=== PATIENT | male | born 1945 | race Caucasian/White ===

== ENCOUNTER 2023-04-15 13:36 | Outpatient (CLI) | payer MEDICARE, BC, SELFPAY ==
--- NOTE | ~2023-04-15 | PE_ITS ---
CORRECTED REPORT exam description edit [facility] [place] 04/28/23 This report was recreated on 04/28/23. Original report was EXAMINATION: PET PSMA skull to mid thigh DATE: 04/15/2023 16:57 INDICATION: Prostate cancer. TECHNIQUE: 6.590 mCi of piflufolastat F-18 was administered intravenously. Low dose computed tomography (CT) images were acquired from the base of the brain to the proximal thighs for attenuation correction and anatomic localization. Automated exposure control was employed. Dose-length product (DLP) was 493 mGy- cm. Positron emission tomography (PET) images were acquired in the same distribution. COMPARISON: None FINDINGS: Head/neck: There are no pathologically enlarged lymph nodes. Chest: The lungs demonstrate mild atelectasis. No pleural effusion. The heart size is normal. No pericardial effusion. Abdomen/pelvis/proximal thighs: The liver, spleen, gallbladder, pancreas, and adrenal glands are normal. There are cysts in the kidneys measuring up to 3.6 cm on the left. There is a 3 mm stone in right kidney. There is diverticulosis of the colon without evidence of diverticulitis. There are no dilated loops of bowel. There is calcified atherosclerosis of the aorta and many of the other arteries. There are no pathologically enlarged lymph nodes. There is no free intraperitoneal fluid. The prostate is moderately enlarged. There is increased activity in the peripheral zone of the prostate bilaterally with maximum SUV of 74.1 on the right. There is severe fatty atrophy of the musculature in left pelvis and left thigh. There is a total right hip arthroplasty. There are changes of posterior fusion procedure involving the lumbar spine, sacrum, and iliac bones. IMPRESSION: 1. Moderately enlarged prostate with increased activity, greatest in the peripheral zone on the right, consistent with primary malignancy. No evidence of metastatic disease. Reviewed, dictated and finalized at location A. MTDD IMPRESSION: 1. Moderately enlarged prostate with increased activity, greatest in the periph eral zone on the right, consistent with primary malignancy. No evidence of meta static disease.
== END 2023-04-15 13:37 | disposition home or self-care (01) ==
LOC: ANHIMG 13:42
PROVIDERS: Visit Provider Urology
DX: C61 Malignant neoplasm of prostate (principal); N40.0 Benign prostatic hyperplasia without lower urinary tract symptoms
CPT/HCPCS: 78815; A9552; A9595

== ENCOUNTER 2023-07-01 15:42 | Emergency (ER) | payer MEDICARE, BC, SELFPAY ==
--- NOTE | ~2023-07-01 | XR_ITS ---
EXAMINATION: XR chest 2V 07/01/2023 16:11 INDICATION: Shortness of breath PROCEDURE: 2 view chest COMPARISON: No prior studies for comparison. FINDINGS: The lungs are clear. The cardiomediastinal silhouette is within normal limits. There are no pleural effusions. There is no pneumothorax suspected. IMPRESSION: 1: NO ACUTE CARDIOPULMONARY DISEASE. Reviewed, dictated and finalized at location A. SUPERINTENDENT
[2023-07-01 15:46] VITALS: BP 142/81; PULSE 83; RESP 18; TEMP 36.3; O2SAT 100
--- NOTE | 2023-07-01 15:49 | ECG_ITS ---
Measurements Intervals Bow Rate: 77 P: 71 HI: 131 QRS: 9 QRSD: 85 T: 33 QT: 348 QTc: 394 Interpretive Statements SINUS RHYTHM NO PREVIOUS ECG AVAILABLE FOR COMPARISON Electronically Signed On 07-01-2023 16:44:22 LOOP TACKER by Berny Almazan M.D.
[2023-07-01 16:03] LABS: Basophils Percent Auto 0.1 % (0.2-1.2); Hematocrit 45.3 % (42.0-52.0); Hemoglobin 14.5 g/dL (14.0-18.0); Immature Granulocyte Absolute 0.03 K/mm3 (0.00-0.031); Immature Granulocyte Percent A 0.4 % (0-0.5); Lymphocytes Absolute Auto 0.82 K/mm3 (0.9-3.2); Lymphocytes Percent Auto 11.5 % (18.3-44.2); Mean Corpuscular Hemoglobin 28.9 pg (26-34); Mean Corpuscular Volume 90.4 fl (80-100); Mean Platelet Volume 9.3 fl (7.4-10.4); Monocytes Absolute Auto 0.3 K/mm3 (0.1-0.6); Monocytes Percent Auto 3.9 % (2.6-8.5); Neutrophils Percent Auto 84.1 % (45.5-73.1); Platelet Count Result 308 k/mm3 (150-375); Red Blood Count 5.01 M/mm3 (4.6-6.20); Red Cell Distribution Width 14.1 % (11.5-14.5); White Blood Count 7.1 K/mm3 (4.5-10.0)
[2023-07-01 16:14] LABS: Alanine Aminotransferase 78 U/L (6-50); Alkaline Phosphatase 114 U/L (38-126); Anion Gap 7 mmol/L (8-16); Aspartate Amino Transferase 76 U/L (17-59); Bilirubin,Total 0.5 mg/dL (0.2-1.3); Blood Urea Nitrogen 18 mg/dL (9-20); Calcium 9.5 mg/dL (8.4-10.2); Carbon Dioxide 27 mmol/L (22-30); Chloride 101 mmol/L (98-107); Estimated CRCL calculation 83 ml/min; Estimated Glomerular Filt Rate > 60; Glucose 115 mg/dL (65-110); Potassium 3.9 mmol/L (3.4-5.0); Sodium 135 mmol/L (137-145)
--- NOTE | 2023-07-01 18:09 | PC.NURSE ---
6934-FAMILY MEMBER REPORTS PATIENT WITH FREQUENT BELCHING AND HEARTBURN. FAMILY MEMBER STATES IT HAS BEEN HAPPENING MORE THIS PAST WEEK.
--- NOTE | 2023-07-01 19:25 | PC.NURSE ---
Patient states we have been waiting long enough. We are gonna go .
== END 2023-07-01 19:25 | disposition left against medical advice (07) ==
PROVIDERS: Emergency Provider Emergency Medicine
DX: R06.02 Shortness of breath (principal)
CPT/HCPCS: 36415; 71046; 80053; 85025; 93005; 99199

== ENCOUNTER 2023-08-17 10:19 | Outpatient (CLI) | payer MEDICARE, BC, SELFPAY ==
--- NOTE | ~2023-08-17 | MR_ITS ---
EXAMINATION: MR pelvis wo/w con DATE: 08/17/2023 11:59 INDICATION: Prostate cancer. TECHNIQUE: Magnetic resonance imaging (MRI) of the pelvis was performed without and with 15 mL MultiH ance intravenous contrast. COMPARISON: PET/CT 04/15/2023 FINDINGS: The prostate is moderately enlarged. There are spacer gel between the rectum and prostate. There is d iverticulosis of the colon without evidence of diverticulitis. There is artifact from a right hip art hroplasty. There are no pathologically enlarged lymph nodes. There is no free intraperitoneal fluid. There are changes of posterior fusion procedure involving the lumbar spine, sacrum, and iliac bones. IMPRESSION: 1. Moderately enlarged prostate. No evidence of metastatic disease. Reviewed, dictated and finalized at location A. TIVE GURU
== END 2023-08-17 10:20 | disposition home or self-care (01) ==
LOC: ANHIMG 10:20
PROVIDERS: Visit Provider Radiology Radiation Oncology
DX: N40.0 Benign prostatic hyperplasia without lower urinary tract symptoms (principal); C61 Malignant neoplasm of prostate
CPT/HCPCS: 72197; A9577

== ENCOUNTER 2025-03-28 12:02 | Outpatient (NON) | payer MEDICARE, BC, SELFPAY ==
--- OUTSIDE RECORDS SUMMARY | 2025-03-28 14:34 | XMS_ITS | Encounter Summary ---
Author Organization [facility] Facility Care Team Providers Care Radio Frequency Engineer Name Role Phone Alonso Gutierrez MD Primary Care Provi monica Alonso Gutierrez MD Primary Care Provi monica Encounter Details Date Type Department Care Team (Latest Contact Info) Description 06/18/2016 Orders Only [facility] CLINCONV ProviderSissy MD [address] [place] [address] Social History Tobacco Use Types Packs/Day Years Used Date Smoking Tobacco: Never Assessed Sex and Gender Information Value Date Recorded Sex Assigned at Not on file Legal Sex Male 2:12 AM YARD FOREMAN Gender Identity Male 04/17/2021 11:51 AM CDT Sexual Orientation Straight 04/17/2021 11 :51 AM CDT documented as of this encounter Plan of Treatment Not on file documented as of this encounter Procedures Procedure Name Priority Date/Time Associated Diagnosis Comments PROCEDURE - RESULT 06/18/2016 12 :00 AM YARD FOREMAN documented in this encounter Results * PROCEDURE - RESULT (06/18/2016 12:00 AM YARD FOREMAN) Narrative 06/18/2016 12:00 AM YARD FOREMAN Ordered by an unspecified provider. Historical Provider Final Res ult documented in this encounter Visit Diagnoses Not on filedocumented in this encounter Additional Health Concerns Infection Onset Date Last Indicated Resolved Time COVID: Suspected 02/26/2021 03/02/2021 03/02/2021 3:54 PM CDT COVID19 04/01/2021 04/01/2021 04/15/2021 3:05 AM CDT COVID: Recovered Comment:Added based on recent COVID infection. 04/15/2021 07/22/2021 08/13/2021 3:[address] documented as of this encounter Care Teams Radio Frequency Engineer Relationship Specialty Start Date End Date Alonso Gutierrez MD [address] [address] PCP - General 08/18/16 Alonso Gutierrez MD [address] [address] PCP - General 07/22/11 08/17/16 documented as of this encounter
--- OUTSIDE RECORDS SUMMARY | 2025-03-28 14:34 | XMS_ITS | Encounter Summary ---
Author Organization [facility] Address [address] [place] [address] Care Team Providers Care Cost Estimating Clerk Name Role Phone Alonso Gutierrez MD Primary Care [facility] Encounter Details Date Type Department Care Team (Late st Contact Info) Description 11/06/2021 Lab Requisition [facility] DermPath Lab [address] [place] [address] Noel Muñoz MD [address] [place] [address] Social History Tobacco Use Types Packs/Day Years Used Date Smoking Tobacco: Never Smokeless Tobacco: Never Sex and Gender Information Value Date Recorded Sex Assigned at Not on file Legal Sex Male 5:13 PM SANDBLASTING SUPERVISOR Gender Identity Not on file Sexual Orientation Not on file documented as of this encounter Plan of Treatment Not on file documented as of this encounter Procedures Procedure Name Priority Date/Time Associated Diagnosis Comments DERMATOPATHOLOGY Routine 11/04/2021 12:0 0 AM CDT documented in this encounter Results * DERMATOPATHOLOGY (11/04/2021 12:00 AM CDT) Case Report Dermatopathology Report Case: [id number] Authorizing Provider: Noel Muñoz MD Collected: 11/04/2021 12:00 AM Ordering Location: [facility] DermPath Lab Received: 11/06/2021 07:42 AM Pathologist: Lilian Doll MD Specimen: Skin, right upper [place] 2 1:20 PM CDT DERMATOPATHOLOGY LABORATORY Final Diagnosis Specimen A. 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 Path # [id number]. 2 1:20 PM CDT DERMATOPATHOLOGY LABORATORY Gross Description Specimen A: Received is one formalin filled container labeled with the patient's name and designated right upper [place]. The specimen consists of a shave biopsy measuring [id number], bisected. Jar 0+. 2 1:20 PM CDT DERMATOPATHOLOGY LABORATORY Microscopic Description Specimen A. SKIN, right upper [place]: Arising in the epidermis and extending into the dermis there are irregularly shaped aggregates of keratinocytes showing evidence of premature cornification. 2 1:20 PM CDT DERMATOPATHOLOGY LABORATORY Disclaimer An external and internal positive and negative controls are appropriate for the histochemical, immunohistochemical and immunofluorescence stain(s) in this case (if any), except where stated explicitly. The performance characteristics of the stain(s) cited in this report were developed and its performance characteristic determined by the Dermatopathology Laboratory at [facility], directed by Dr. Serge Wesley. These tests need not be, and therefore are not, approved by the [place] Food and Drug Administration. The tests are used for clinical purposes. Billing Codes Specimen Charges Stain Charges 60356 1 2 1:20 PM CDT DERMATOPATHOLOGY LABORATORY Embedded Images 2 1:20 PM CDT DERMATOPATHOLOGY LABORATORY Pathology/Cytolog y TISSUE SPECIMEN FROM SKIN / Unknown 11/04/2021 11/06/2021 7:42 AM CDT us Noel Muñoz MD LAB - PATHOLOGY/CYTOLOGY ORDER YUDITH Final Result DERMATOPATHOLOGY LABORATORY [facility] - Department of Dermatology [address], [address] [phone] documented in this encounter Visit Diagnoses Not on filedocumented in this encounter Care Teams Cost Estimating Clerk Relationship Specialty Start Date End Date Alonso Gutierrez MD PCP - General 05/02/17 documented as of this encounter
--- OUTSIDE RECORDS SUMMARY | 2025-03-28 14:34 | XMS_ITS | Encounter Summary ---
Author Organization [facility] Address [address] [facility] [place] [address] Care Team Providers Care Earth Moving Machine Operator Name Role Phone Alonso Gutierrez MD Primary Care [facility] Encounter Details Date Type Department Care Team (Late st Contact Info) Description 02/19/2021 Lab Requisition [facility] DermPath Lab [address] [facility] [place] [address] Noel Muñoz MD [address] [place] [address] Social History Tobacco Use Types Packs/Day Years Used Date Smoking Tobacco: Never Smokeless Tobacco: Never Sex and Gender Information Value Date Recorded Sex Assigned at Not on file Legal Sex Male 5:13 PM CARE MANAGEMENT SPECIALIST Gender Identity Not on file Sexual Orientation Not on file documented as of this encounter Plan of Treatment Not on file documented as of this encounter Procedures Procedure Name Priority Date/Time Associated Diagnosis Comments DERMATOPATHOLOGY Routine 02/17/2021 3:33 AM CDT documented in this encounter Results * DERMATOPATHOLOGY (02/17/2021 3:33 AM CDT) Case Report Dermatopathology Report Case: [id number] Authorizing Provider: Noel Muñoz MD Collected: 02/17/2021 03:33 AM Ordering Location: [facility] DermPath Lab Received: 02/19/2021 07:47 AM Pathologist: Josseline Dimas MD Specimen: Skin, left mid back 08/20/202 1 12:52 PM CDT DERMATOPATHOLOGY LABORATORY Final Diagnosis Specimen A. SKIN, left mid back: LICHEN PLANUS-LIKE KERATOSIS (BENIGN LICHENOID KERATOSIS), FOCAL (L82.1) POST-INFLAMMATORY PIGMENT ALTERATION (L81.9) DERMAL FIBROSIS (L90.5) (see microscopic description) 12:52 PM CDT DERMATOPATHOLOGY LABORATORY at 1252 CDT Clinical History BCCA vs SCCA vs SK vs melanoma. Path # [id number]. 12:52 PM CDT DERMATOPATHOLOGY LABORATORY Gross Description Specimen A: Received is one formalin filled container labeled with the patient's name and designated left mid back. The specimen consists of a shave biopsy measuring [id number]. Jar 0. 12:52 PM CDT DERMATOPATHOLOGY LABORATORY Microscopic Description Specimen A. SKIN, left mid back: There is a focal lichenoid infiltrate with vacuolar changes of basilar keratinocytes and scattered necrotic keratinocytes. Sections show abundant melanin within melanophages around the superficial vascular plexus. There is focal dermal fibrosis. There is no evidence of epithelial dysplasia or malignancy in the sections examined. 12:52 PM CDT DERMATOPATHOLOGY LABORATORY Disclaimer An external and internal positive and negative controls are appropriate for the histochemical, immunohistochemical and immunofluorescence stain(s) in this case (if any), except where stated explicitly. The performance characteristics of the stain(s) cited in this report were developed and its performance characteristic determined by the Dermatopathology Laboratory at [facility], directed by Dr. Serge Wesley. These tests need not be, and therefore are not, approved by the [place] Food and Drug Administration. The tests are used for clinical purposes. Billing Codes Specimen Charges Stain Charges 24176 1 12:52 PM CDT DERMATOPATHOLOGY LABORATORY Embedded Images 12:52 PM CDT DERMATOPATHOLOGY LABORATORY Pathology/Cytolo gy TISSUE SPECIMEN FROM SKIN / Unknown 02/17/2021 3:33 AM CDT 02/19/2021 7:47 AM CDT us Noel Muñoz MD LAB - PATHOLOGY/CYTOLOGY ORDER YUDITH Final Result DERMATOPATHOLOGY LABORATORY [facility] - Department of Dermatology [facility] [address] [place] [address], [address] [phone] documented in this encounter Visit Diagnoses Not on filedocumented in this encounter Care Teams Earth Moving Machine Operator Relationship Specialty Start Date End Date Alonso Gutierrez MD PCP - General 05/02/17 documented as of this encounter
--- OUTSIDE RECORDS SUMMARY | 2025-03-28 14:34 | XMS_ITS | Encounter Summary ---
Author Organization [facility] Facility Care Team Providers Care Venetian Blind Assembler Name Role Phone Alonso Gutierrez MD Primary Care [facility] Encounter Details Date Type Department Care Team (Latest Contact Info) Description 10/06/2016 Orders Only [facility] CLINCONV ProviderSissy MD [address] [place] [address] Social History Tobacco Use Types Packs/Day Years Used Date Smoking Tobacco: Never Assessed Sex and Gender Information Value Date Recorded Sex Assigned at Not on file Legal Sex Male 2:12 AM EHS MANAGER Gender Identity Male 04/17/2021 11:51 AM CDT Sexual Orientation Straight 04/17/2021 11 :51 AM CDT documented as of this encounter Plan of Treatment Not on file documented as of this encounter Procedures Procedure Name Priority Date/Time Associated Diagnosis Comments PROCEDURE - RESULT 10/11/2016 12 :00 AM CDT documented in this encounter Results * PROCEDURE - RESULT (10/11/2016 12:00 AM CDT) Narrative 10/11/2016 12:00 AM CDT Ordered by an unspecified provider. Historical Provider [...] documented as of this encounter Care Teams Venetian Blind Assembler Relationship Specialty Start Date End Date Alonso Gutierrez MD [address] [address] PCP - General 08/18/16 documented as of this encounter
--- OUTSIDE RECORDS SUMMARY | 2025-03-28 14:34 | XMS_ITS | Clinical Summary ---
Author Organization [facility] Address [address] [place] [address] Care Team Providers Care Batch Freezer Operator Name Role Phone Alonso Gutierrez MD [facility] Source Comments [facility],non-owned Affiliates and Associated Physician Practices is amultiple site organization consisting of ambulatory clinics and hospital sitesin [place], [place], [place] and [place]. This disclosure is being madepursuant to the Care Everywhere program and may not contain all information available regarding this patient. Last updated 18.[facility] Allergies No known active allergies Medications * Be aware that medications may not be up to date on this document. Alwaysverify current medications with the patient. gabapentin (NEURONTIN) 100 MG capsule Take 1,200 mg by mouth TID. 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 Family History Medical History Relation Name Comments Cardiomyopathy Father COPD - Chronic Obstructive Pulmonary Disease Mother Relation Name Status Comments Father Mother Social History Tobacco Use Types Packs/Day Years Used Date Smoking Tobacco: Never Smokeless Tobacco: Never Sex and Gender Information Value Date Recorded Sex Assigned at Not on file Legal Sex Male 5:13 PM NAPPER TENDER Gender Identity Not on file Sexual Orientation Not on file Last Filed Vital Signs Vital Sign Reading Time Taken Comments Blood Pressure 171/97 03/20/2019 10:18 AM CDT Pulse 60 03/20/2019 10:18 AM CDT Temperature 36.4 C (97.6 F) 12/27/2017 1:15 PM CDT Respiratory Rate - - Oxygen Saturation 99% 09/12/2018 11:31 AM CDT Inhaled Oxygen Concentration - - Weight 79.4 kg (175 lb) 03/20/2019 10:18 AM CDT Height 182.9 cm (6') 03/20/2019 10:18 AM CDT Body Mass Index 23.73 03/20/2019 10:18 AM CDT Plan of Treatment Health Maintenance Due Date Last Done Comments DTAP/TDAP/TD VACCINES (1 - Tdap) 1964 PNEUMOCOCCAL VACCINE 50+ (1 of 1 - PCV) 09/25/1995 ZOSTER VACCINE (1 of 2) 09/25/1995 Respiratory Syncytial Virus (RSV) Vaccine Pt: or over 60 yrs (1 - 1-dose 75+ series) 2020 DEPRESSION SCREENING 07/04/2024 COVID-19 VACCINE ( - 2023-2 5 season) 2025 INFLUENZA VACCINE (#1) 2025 HEPATITIS B VACCINE Aged Out No longe r eligible based on patient's age to complete this topic HIB VACCINE Aged Out No longer eligi ble based on patient's age to complete this topic HPV VACCINE Aged Out No longer eligi ble based on patient's age to complete this topic MENINGOCOCCAL (Group B) VACC INE SHARED DECISION-MAKING Aged Out No longer eligibl e based on patient's age to complete this topic MENINGOCOCCAL GROUPS A/C/Y/W VACCINE Aged Out No longer eligible b ased on patient's age to complete this topic Insurance [employer] Care Teams Batch Freezer Operator Relationship Specialty Start Date End Date Alonso Gutierrez MD PCP - General 05/02/17
--- OUTSIDE RECORDS SUMMARY | 2025-03-28 14:34 | XMS_ITS | Encounter Summary ---
Author Organization [facility] Facility Care Team Providers Care Journeyman Pipe Fitter Name Role Phone Alonso Gutierrez MD Primary Care Provi monica Alonso Gutierrez MD Primary Care Provi monica Encounter Details Date Type Department Care Team (Latest Contact Info) Description 02/19/2016 Orders Only [facility] CLINCONV ProviderSissy MD [address] [place] [address] Social History Tobacco Use Types Packs/Day Years Used Date Smoking Tobacco: Never Assessed Sex and Gender Information Value Date Recorded Sex Assigned at Not on file Legal Sex Male 2:12 AM MANAGER FINE Gender Identity Male 04/17/2021 11:51 AM CDT Sexual Orientation Straight 04/17/2021 11 :51 AM CDT documented as of this encounter Plan of Treatment Not on file documented as of this encounter Procedures Procedure Name Priority Date/Time Associated Diagnosis Comments SCAN - LABS 02/19/2016 12:00 AM CDT documented in this encounter Results * SCAN - LABS (02/19/2016 12:00 AM CDT) Narrative 02/19/2016 12:00 AM CDT Ordered by an unspecified [...] documented as of this encounter Care Teams Journeyman Pipe Fitter Relationship Specialty Start Date End Date Alonso Gutierrez MD [address] [place] [address] PCP - General 08/18/16 Alonso Gutierrez MD [address] [place] [address] PCP - General 07/22/11 08/17/16 documented as of this encounter
--- OUTSIDE RECORDS SUMMARY | 2025-03-28 14:34 | XMS_ITS | Encounter Summary ---
Author Organization [facility] Facility Care Team Providers Care Online Content Editor Name Role Phone Alonso Guteirrez MD Primary Care Provi monica Alonso Gutierrez MD Primary Care Provi mon[facility] Encounter Details Date Type Department Care Team (Latest Contact Info) Description 06/10/2016 Orders Only [facility]G CLINCONV ProviderSissy MD [address] [place] [address] Social History Tobacco Use Types Packs/Day Years Used Date Smoking Tobacco: Never Assessed Sex and Gender Information Value Date Recorded Sex Assigned at Not on file Legal Sex Male 2:12 AM TILE MECHANIC HELPER Gender Identity Male 04/17/2021 11:51 AM CDT Sexual Orientation Straight 04/17/2021 11 :51 AM CDT documented as of this encounter Plan of Treatment Not on file documented as of this encounter Procedures Procedure Name Priority Date/Time Associated Diagnosis Comments PROCEDURE - RESULT 06/10/2016 12 :00 AM TILE MECHANIC HELPER documented in this encounter Results * PROCEDURE - RESULT (06/10/2016 12:00 AM TILE MECHANIC HELPER) Narrative 06/10/2016 12:00 AM TILE MECHANIC HELPER Ordered by an unspecified provider. Historical Provider [...] documented as of this encounter Care Teams Online Content Editor Relationship Specialty Start Date End Date Alonso Gutierrez MD [address] [address] PCP - General 08/18/16 Alonso Gutierrez MD [address] [address] PCP - General 07/22/11 08/17/16 documented as of this encounter
--- OUTSIDE RECORDS SUMMARY | 2025-03-28 14:34 | XMS_ITS | Encounter Summary ---
Author Organization [facility] Facility Care Team Providers Care Technology Officer Name Role Phone Alonso Gutierrez MD Primary Care [facility] Encounter Details Date Type Department Care Team (Latest Contact Info) Description 09/09/2016 Orders Only MMG CLINCONV ProviderSissy MD [address] [place], [place] [id number] Social History Tobacco Use Types Packs/Day Years Used Date Smoking Tobacco: Never Assessed Sex and Gender Information Value Date Recorded Sex Assigned at Not on file Legal Sex Male 2:12 AM MINE INSPECTOR FEDERAL Gender Identity Male 04/17/2021 11:51 AM CDT Sexual Orientation Straight 04/17/2021 11 :51 AM CDT documented as of this encounter Plan of Treatment Not on file documented as of this encounter Procedures Procedure Name Priority Date/Time Associated Diagnosis Comments SCAN - LABS 09/10/2016 12:00 AM MINE INSPECTOR FEDERAL SCAN - LABS 09/09/2016 12:00 AM MINE INSPECTOR FEDERAL documented in this encounter Results * SCAN - LABS (09/10/2016 12:00 AM MINE INSPECTOR FEDERAL) Narrative 09/10/2016 12:00 AM MINE INSPECTOR FEDERAL Ordered by an unspecified provider. Historical Provider Final Res ult * SCAN - LABS (09/09/2016 12:00 AM MINE INSPECTOR FEDERAL) Narrative 09/09/2016 12:00 AM MINE INSPECTOR FEDERAL Ordered by an unspecified provider. us Historical Provider MD Final Res ult documented in this encounter Visit Diagnoses Not on filedocumented in this encounter Additional Health Concerns Infection Onset Date Last Indicated Resolved Time COVID: Suspected 02/26/2021 03/02/2021 03/02/2021 3:54 PM CDT COVID19 04/01/2021 04/01/2021 04/15/2021 3:05 AM CDT COVID: Recovered Comment:Added based on recent COVID infection. 04/15/2021 07/22/2021 08/13/2021 3:[address] documented as of this encounter Care Teams Technology Officer Relationship Specialty Start Date End Date Alonso Gutierrez MD [address] [address] PCP - General 08/18/16 documented as of this encounter
--- OUTSIDE RECORDS SUMMARY | 2025-03-28 14:34 | XMS_ITS ---
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 Past Treatment and Therapy Plans Lifetime Dose Tracking * Chemical Lifetime Dose Automatic Entry Manual Entr y Fluoro Time 3 minutes 3 minutes 0 minutes Air kerma at the reference point (Ka,r) 46.2 mGy 4 6.2 mGy 0 mGy Resolved Problems Problem Noted Date Diagnosed Date Resolved Date Personal history of COVID-19 04/08/2021 11/15/2024 Acute bronchitis and bronchiolitis 11/04/2020 10/02/2021 Dyspnea in pediatric patient 11/04/2020 10/02/2021 Full code status 11/04/2020 10/02/2021 History of post-polio syndrome 11/04/2020 10/02/2021 Hyperleukocytosis 11/04/2020 10/02/2021 Left sided colitis 11/04/2020 2 Line sepsis ([facility]) 11/04/20202021 Nasal congestion with rhinorrhea 11/04/2020 10/02/2021 Upper respiratory infection 11/04/2020 10/02/2021 Worsening pneumonia 11/04/2020 10/03/19 22 Cubital tunnel syndrome on left 02/25/2020 10/02/2021 Irregular heart beat 01/29/2019 022 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[facility]) 01/30/20 19 10/02/2021 Dislocation of hip, posterio r, right, closed ([facility]) 01/21/2019 10/02/2021 Overview (01/21/2019): Added automatically from request for surgery [id number] Arthritis of carpometacarpal (CMC) joint of right thumb 01/17/2019 10/02/2021 Aseptic loosening of prosthe tic hip, initial encounter 01/02/2019 10/02/2021 Overview (01/02/2019): Added automatically from request for surgery [id number] Recurrent dislocation, right hip 12/02/2018 11/04/2020 Overview (12/03/2018): Added automatically from request for surgery [id number] Primary osteoarthritis of fi rst carpometacarpal joint of right hand 10/10/2017 0407/2021 Primary osteoarthritis of left hand 09/17/2017 10/02/2021 Primary osteoarthritis, right hand 09/17/2017 10/02/2021 Low back pain 09/10/2016 10/02/2021 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
--- OUTSIDE RECORDS SUMMARY | 2025-03-28 14:34 | XMS_ITS | Encounter Summary ---
Author Organization [facility] Facility Care Team Providers Care Ramp Manager Name Role Phone Alonso Gutierrez MD Primary Care [facility] Encounter Details Date Type Department Care Team (Latest Contact Info) Description 12/21/2016 Orders Only [facility] CLINCON[facility] ProviderSissy MD [address] [place] [id number] Social History Tobacco Use Types Packs/Day Years Used Date Smoking Tobacco: Never Assessed Sex and Gender Information Value Date Recorded Sex Assigned at Not on file Legal Sex Male 2:12 AM MEAT DEPARTMENT MANAGER Gender Identity Male 04/17/2021 11:51 AM CDT Sexual Orientation Straight 04/17/2021 11 :51 AM CDT documented as of this encounter Plan of Treatment Not on file documented as of this encounter Procedures Procedure Name Priority Date/Time Associated Diagnosis Comments SCAN - LABS 12/21/2016 12:00 AM CDT documented in this encounter Results * SCAN - LABS (12/21/2016 12:00 AM CDT) Narrative 12/21/2016 12:00 AM CDT Ordered by an unspecified [...] documented as of this encounter Care Teams Ramp Manager Relationship Specialty Start Date End Date Alonso Gutierrez MD [address] [address] PCP - General 08/18/16 documented as of this encounter
--- OUTSIDE RECORDS SUMMARY | 2025-03-28 14:34 | XMS_ITS | Clinical Summary ---
Author Organization [facility] Address [address] [place] [address] Care Team Providers Care Infusion Therapy Nurse Name Role Phone Alonso Gutierrez MD Primary Care Provi monica Allergies No known active allergies Medications cholecalciferol (VITAMIN D-3) 2000 unit capsule Take 1 capsule (2,000 Units total) by mouth every morning Active omega-3 fatty acids (LOVAZA) 1 gram capsule Take by mouth 3 (three) times a day Active multivitamin with minerals tablet Take 1 tablet by mouth 3 (three) times a day with meals Active Lacto.acidophilu s-Bif.animalis 32 billion cell capsule Take 1 capsule by mouth 3 times daily Active meclizine (ANTIVERT) 12.5 mg tablet Take 1 tablet (12.5 mg total) by mouth 3 (three) times a day as needed for dizziness 90 tablet 1 4 Active Additional Information Patient not taking.Reported on 03/25/2025 acetaminophen-co deine (TYLENOL with CODEINE #3) 300-30 mg per tablet Take 1 tablet by mouth every 4 (four) hours as needed for pain for pain 90 tablet 5 4 Active diazePAM (VALIUM) 2 mg tablet TAKE 1 TABLET(2 MG) BY MOUTH EVERY 12 HOURS NEEDED FOR VERTIGO 30 tablet 5 4 Active Additional Information Patient taking differently: As needed, Reported on 03/25/2025 Eliquis 5 mg tablet TAKE 1 TABLET BY MOUTH TWICE DAILY 180 tablet 3 4 Active valsartan-hydroC HLOROthiazide (DIOVAN-HCT) 80-12.5 mg per tabletIndication s:hypertension Take 1 tablet by mouth daily 90 tablet 3 5 08/30/19 Active metoprolol XL (TOPROL-XL) 50 mg extended release tabletIndication s:Paroxysmal atrial fibrillation (HCC),Essential hypertension Take 1 tablet (50 mg total) by mouth daily 90 tablet 3 5 08/30/19 Active Active Problems Problem Noted Date Diagnosed Date Essential hypertension 09/02/2023 Paroxysmal atrial fibrillation 08/12/2023 Vertigo 11/23/2022 Malignant neoplasm of prostate 11/13/2021 0 11/10/2022 Kidney stone 11/04/2020 Poliomyelitis 01/29/2019 History of total right hip replacement 9 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 Urge incontinence of urine 09/17/2017 Other chronic pain 09/10/2016 Scoliosis of lumbar spine 06/01/2016 Lumbar radiculopathy 06/01/2016 Resolved Problems Problem Noted Date Diagnosed Date Resolved Date Personal history of COVID-19 04/08/2021 11/15/2024 Acute bronchitis and bronchiolitis 11/04/2020 10/02/2021 Dyspnea in pediatric patient 11/04/2020 10/02/2021 Full code status 11/04/2020 10/02/2021 History of post-polio syndrome 11/04/2020 10/02/2021 Hyperleukocytosis 11/04/2020 10/02/2021 Left sided colitis 11/04/2020 2 Line sepsis ([facility]) 11/04/20202021 Nasal congestion with rhinorrhea 11/04/2020 10/02/2021 Upper respiratory infection 11/04/2020 10/02/2021 Worsening pneumonia 11/04/2020 10/03/19 22 Cubital tunnel syndrome on left 02/25/2020 10/02/2021 Irregular heart beat 01/29/201910/02/ 022 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[facility]) 01/30/20 19 10/02/2021 Dislocation of hip, posterio r, right, closed (CMS/HCC) 01/21/2019 10/02/2021 Overview (01/21/2019): Added automatically from request for surgery [id number] Arthritis of carpometacarpal (CMC) joint of right thumb 01/17/2019 10/02/2021 Aseptic loosening of prosthe tic hip, initial encounter 01/02/2019 10/02/2021 Overview (01/02/2019): Added automatically from request for surgery [id number] Recurrent dislocation, right hip 12/02/2018 11/04/2020 Overview (12/03/2018): Added automatically from request for surgery [id number] Primary osteoarthritis of fi rst carpometacarpal joint of right hand 10/10/2017 04/07/2021 Primary osteoarthritis of left hand 09/17/2017 10/02/2021 Primary osteoarthritis, right hand 09/17/2017 10/02/2021 Low back pain 09/10/2016 10/02/2021 Degeneration of intervertebr al disc of lumbar region 06/01/2016 10/02/2021 Visit for well man health check 09/17/2015 10/02/2021 Urinary tract infection 08/28/2015 11/10/202211/01 Prostatic hyperplasia, benign localized 02/14/2012 0 11/10/2022 11/14/2023 Encounters Date Type Department Care Team Description 03/25/2025 8:45 AM CDT Office Visit [facility] Cardiology [address] [facility] [address] [place] [address] Abhishek Newman MD Paroxysmal atrial fibrillation (HCC) (Primary Dx); Essential hypertension 02/07/2025 Telephone [facility] Family Medicine [address] [facility] [address] [place] [address] Alonso Gutierrez MD Additional Services Or Orders from Last 3 Months Immunizations Immunization Administration Dates Next Due Influenza, Quadrivalent, Hig h Dose, Preservative Free, Intrr 05/04/2021,04/14/2020,04/01/2019 Influenza, Trivalent, High D ose, Split, Preservative Free, Intramuscular 04/01/2019,03/06/2018,04/07/2017,03/25 Influenza, Trivalent, IM (MDV) 04/04/2013 Influenza, Trivalent, Preser vative Free, Intramuscular 04/21/2015 Influenza, Unspecified 08/16/2023(Deferr ed: Patient Refused),11/10/2022(Deferred: Patient Refused),08/04/2022(Deferred: Patient Refused),04/21/2015 Pneumococcal Conjugate PCV 13 05/11/2019, 015 Pneumococcal Polysaccharide PPV23 04/14/2020 TD Preservative Free 08/06/2002 Td, Adsorbed, Preservative F ree, Adult Use, Lf Unspecified 08/06/2002 Surgical History Surgery Date Site/Laterality Comments MD ARTHRD ANT INTERBODY MIN DSC LUMBAR Lumbar Vertebral Fusion - (Added by TW Conv) MD DSTRJ NEUROLYTIC AGENT OT HER PERIPHERAL NERVE Nerve Ablation Other Branch - caudal (Added by TW Conv) TOTAL HIP ARTHROPLASTY 01/05/2017 Right CLOSED REDUCTION HIP DISLOCATION x2 COLONOSCOPY VASECTOMY VASECTOMY REVERSAL CORRECTION HAMMER TOE WRIST SURGERY Right EYE SURGERY LITHOTRIPSY SKIN CANCER EXCISION JOINT REPLACEMENT SPINE SURGERY Medical History Medical History Date Comments Personal history of poliomyelitis History of poliomyelitis - (Added by TW Conv) Motion sickness benign persisten t vertigo PONV (postoperative nausea a nd vomiting) Kidney stone Cancer (HCC) skin cancer (nec k and back) Arthritis Kidney stone 11/04/2020 Covid-19 Prostate disorder Urinary tract infection 08/28/2015 Vertigo 11/23/2022 Hypertension Neuromuscular disorder Prior history of Polio Rheumatic fever At age 10 Atrial fibrillation (HCC) Family History Medical History Relation Name Comments Cancer Father Alonzo Carrera Family hist ory of malignant neoplasm - (Added by TW Conv) Colon cancer Father Alonzo Carrera Heart disease Father Alonzo Carrera Family his tory of cardiac disorder - (Added by TW Conv) Heart failure Father Alonzo Carrera Family his tory of congestive heart failure - (Added by TW Conv) Lung disease Father Alonzo Carrera Family hist ory of lung disease - (Added by TW Conv) Obesity Father Alonzo Carrera COPD Mother Leia Deandre Lung disease Mother Leia Carrera Family histor y of lung disease - (Added by TW Conv) Transient ischemic attack Mother Leia Carrera Relation Name Status Comments Father Alonzo Carrera Mother Leia Carrera Social History Tobacco Use Types Packs/Day Years Used Date Smoking Tobacco: Never Smokeless Tobacco: Never Tobacco Cessation:Counseling Given: Not Answered Alcohol Use Standard Drinks/Week Comments Yes 7 (1 standard drink = 0.6 oz pur e alcohol) PHQ-2 Answer Date Recorded PHQ-2 Total Score (If total score is 3 or more points, staff should administer the PHQ-9) 0 11/15/2024 Sex and Gender Information Value Date Recorded Sex Assigned at Not on file Legal Sex Male 2:12 AM ASSAYER Gender Identity Male 04/17/2021 11:51 AM CDT Sexual Orientation Straight 04/17/2021 11 :51 AM CDT Obstetrics History Last Filed Vital Signs Vital Sign Reading Time Taken Comments Blood Pressure 120/70 03/25/2025 8:40 AM CDT Pulse 72 03/25/2025 8:40 AM CDT Temperature 36.7 C (98 F) 10/07/2021 9:27 AM CDT Respiratory Rate 16 03/25/2025 8:40 AM CDT Oxygen Saturation 97% 03/25/2025 8:40 AM CDT Inhaled Oxygen Concentration - - Weight 78.9 kg (174 lb) 03/25/2025 8:40 AM CDT Height 182.9 cm (6') 03/25/2025 8:40 AM CDT Body Mass Index 23.6 03/25/2025 8:40 AM CDT Plan of Treatment Health Maintenance Due Date Last Done Comments Hepatitis C Screening 1945 Hepatitis B Screening 09/25/1963 Zoster Vaccine (1 of 2) 09/25/1995 DTaP/Tdap/Td Vaccine (1 - Tdap) 08/07/2002 3, 08/06/2002 Covid-19 Vaccine (4 - 2024-2 6 season) 2025 07/31/2021, 09/12/2020, 08/15/2020 Influenza Vaccine (#1) 2025 , 04/14/2020, 04/01/2019, Additional history exists Depression Screening 11/15/2025 11/15/2024, 11/14/2023, 11/10/2022, Additional history exists Fall Risk Assessment 11/15/2025 11/15/2024, 11/14/2023, 11/10/2022, Additional history exists Well Visit 65+ 11/15/2025 11/15/2024, 11/01, 11/14/2023, Additional history exists Colon Cancer Screening-CT Colonography Discontinued 01/23/2019 Colon Cancer Screening-Colonoscopy Discontinued 01/23/2019 Colon Cancer Screening-DNA Stool Discontinued 01/24/20 19 Colon Cancer Screening-FIT Discontinued 01/23/2019 Colon Cancer Screening-FOBT Discontinued 01/23/2019 Colon Cancer Screening-Sigmoidoscopy Discontinued 01/23/2019 Colorectal Cancer Screening Discontinued Pneumococcal vaccine 65+ Completed 020, 05/11/2019, 10/08/2014 Medical Devices Implanted Type Area Landscape Drafter Device Identifier Shelf Expiration Date Model / Serial / Lot Other - See Comments-01/06/20 17 Implanted:01/05 (Quantity not on file) Other - see comments Right: Hip [employer] 3122-040 Smartset Medium Viscosity Cement 40gm Bone Sterile - [id number] Implanted:Qty: 1 on 01/22/2019 by Fredis Gregory MD at [facility] Right: Hip [employer] [id number] / / [id number] [employer] [id number] Articul/Cong 28mm Sleeve Total Stabilize Hip +8.5mm 12/14 Taper Latex Free - [id number] Implanted:Qty: 1 on 01/22/2019 by Fredis Gregory MD at [facility] Right: Hip [employer] [id number] / / [id number] Bi-Mentum Pe Liner 28/47 Implanted:Qty: 1 on 01/22/2019 by Fredis Gregory MD at [facility] Right: Hip [employer] [id number] / / [employer] [id number] Endurance Smartset Cement 20gm Bone - [id number] Implanted:Qty: 1 on 01/22/2019 by Fredis Gregory MD at [facility] Right: Hip [employer] [id number] / / [id number] Bi-Mentum Pressfit Cup 47 Implanted:Qty: 1 on 01/23/2019 by Fredis Gregory MD at [facility] Right: Hip [employer] [id number] / / [id number] Procedures Procedure Name Priority Date/Time Associated Diagnosis Comments COLONOSCOPY Routine 01/23/2019 from Last 3 Months or Most Recently Relevant to Health Maintenance Results * Colonoscopy (01/23/2019) Anatomical Region Laterality Modality Other Historical Provider ENDOSCOPY PROCEDURES Kaitlin l Result from Last 3 Months or Most Recently Relevant to Health Maintenance Insurance [facility] Member Subscriber Plan / Payer ( fective 2001-Present) Name:Prasanth Carrera Relation to Subscriber:Spouse Name:MARION CARRERA Date of :1972 (Home) Address: [address] [place] [address] [place] [address] Payer ID:[id number] (NAIC) Group ID:[id number] Type:[facility] Address: [address] [place] [id number] MEDICARE MEDICARE [facility] MEDICARE MEDICARE Advance Directives For more information, please contact: [phone] * Full Code (Latest Code Status on File) Date Activated Date Inactivated Comments 01/22/2019 4:20 AM 01/26/2019 9:25 PM Care Teams Infusion Therapy Nurse Relationship Specialty Start Date End Date Alonso Gutierrez MD [address] [address] PCP - General 08/18/16
--- OUTSIDE RECORDS SUMMARY | 2025-03-28 14:35 | XMS_ITS | Encounter Summary ---
Author Organization [facility] Address [facility] [place] [address] Care Team Providers Care Security Administrator Name Role Phone Alonso Gutierrez MD Primary Care Provider Encounter Details Date Type Department Care Team (Late st Contact Info) Description 08/02/2022 [email or web address] Message [facility] Patient Accounts [address] [place], [place] [id number] [email or web address] Financial Assistance Social History Tobacco Use Types Packs/Day Years Used Date Smoking Tobacco: Never Smokeless Tobacco: Never Alcohol Use Standard Drinks/Week Comments Yes 11.7 (1 standard drink = 0.6 oz pure alcohol) SOCIAL DRINKER AUDIT-C Answer Date Recorded Frequency of Alcohol Consumption Patient decline d 07/13/2018 Average Number of Drinks Patient declined 2018 Frequency of Binge Drinking Patient declined 04/2019 PHQ-2 Answer Date Recorded PHQ-2 Score - If the patient scores above 3, please move on to questions 3-9 0 05/28/2022 Sex and Gender Information Value Date Recorded Sex Assigned at Not on file Legal Sex Male 4:59 PM CDT Gender Identity Not on file Sexual Orientation Not on file documented as of this encounter Functional Status * RETIRED Are you deaf or do you have serious difficulty hearing Answer Date of Assessment Author Status No 01/26/2019 9:52 PM CDT Acti ve * RETIRED Are you blind or do you have serious difficulty seeing, even when wearing glasses? Answer Date of Assessment Author Status No 01/26/2019 9:52 PM CDT Activ e * Do you have serious difficulty walking or climbing stairs? Answer Date of Assessment Author Status Yes 01/26/2019 9:52 PM Marly Pittman FNP-BC Active * Do you have difficulty dressing or bathing? Answer Date of Assessment Author Status Yes 01/26/2019 9:52 PM Marly Pittman FNP-BC Active * Because of a physical, mental, or emotional condition, do you have difficulty doing errands alone such as visiting a doctor's office or shopping? Answer Date of Assessment Author Status No 01/26/2019 9:52 PM Marly Pittman FNP-BC Active documented as of this encounter Mental Status * Because of a physical, mental, or emotional condition, do you have serious difficulty concentrating, remembering, or making decisions? Answer Entry Date Author Status No 01/26/2019 9:52 PM Marly Pittman FNP-BC Active documented in this encounter Plan of Treatment Not on file documented as of this encounter Visit Diagnoses Not on filedocumented in this encounter Additional Health Concerns Assessment Noted Time PHQ-9 Depression Total Score: 0 05/15/20 21 8:40 AM JUNIOR NETWORK ADMINISTRATOR documented as of this encounter Care Teams Security Administrator Relationship Specialty Start Date End Date Alonso Gutierrez MD PCP - General 12/21/16 documented as of this encounter
--- OUTSIDE RECORDS SUMMARY | 2025-03-28 14:35 | XMS_ITS | Encounter Summary ---
Author Organization [facility] Address [address] [place] [address] Care Team Providers Care Senior Stock Plan Administrator Name Role Phone Alonso Gutierrez MD Primary Care Provider Encounter Details Date Type Department Care Team (Late st Contact Info) Description 01/31/2019 Hospital Follow-up Call [facility] [place] [address] Cee Kwan Social History Tobacco Use Types Packs/Day Years Used Date Smoking Tobacco: Never Smokeless Tobacco: Never Alcohol Use Standard Drinks/Week Comments Yes 0 (1 standard drink = 0.6 oz pur e alcohol) SOCIAL DRINKER AUDIT-C Answer Date Recorded Frequency of Alcohol Consumption Patient decline d 07/13/2018 Average Number of Drinks Patient declined 2018 Frequency of Binge Drinking Patient declined 04/2019 Sex and Gender Information Value Date Recorded Sex Assigned at Not on file Legal Sex Male 4:59 PM CDT Gender Identity Not on file Sexual Orientation Not on file documented as of this encounter Functional Status * RETIRED Are you deaf or do you have serious difficulty hearing Answer Date of Assessment Author Status No 01/26/2019 9:52 PM CDT Activ e * RETIRED Are you blind or do you have serious difficulty seeing, even when wearing glasses? Answer Date of Assessment Author Status No 01/26/2019 9:52 PM CDT Activ e * Do you have serious difficulty walking or climbing stairs? Answer Date of Assessment Author Status Yes 01/26/2019 9:52 PM CDT Marly Moseley, WASH OIL PUMP OPERATOR HELPER-CAPRICE Active * Do you have difficulty dressing [...] on filedocumented in this encounter Care Teams Senior Stock Plan Administrator Relationship Specialty Start Date End Date Alonso Gutierrez MD PCP - General 12/21/16 documented as of this encounter
--- OUTSIDE RECORDS SUMMARY | 2025-03-28 14:35 | XMS_ITS | Clinical Summary ---
Author Organization [facility] Address [facility] [place] [address] Care Team Providers Care Group Sales Coordinator Name Role Phone Alonso Gutierrez MD Primary Care Provider Allergies No known active allergies Medications multivitamins-mi GOMEZ gonzalez, chewable tablet Chew 1 tablet by mouth daily. Active fish oil 1000 MG Cap capsuleIndicatio ns:History of total left hip replacement Take 2 capsules (2,000 mg total) by mouth daily. 90 capsule 9 Active vitamin D3, cholecalciferol, 25 MCG tabletIndication s:History of total left hip replacement Take 2 tablets (50 mcg total) by mouth daily. 60 tablet 9 Active diphenhydrAMINE 12.5 MG/5ML elixir Take 25 mg by mouth nightly as needed for Allergies. Active probiotic capsule Take 1 capsule by mouth 3 (three) times daily with meals. Active Cholecalciferol (VITAMIN D) 50 MCG (2000 UT) Tab Take 3 capsules by mouth daily. 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 Poliomyelitis ([facility]) 01/29/2019 Irregular heart beat 01/29/2019 History of total right hip replacement 9 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 Urge incontinence of urine 09/17/2017 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/19 18 Lesion of right medial popliteal nerve 8 Other chronic pain 09/10/2016 Scoliosis of lumbar spine 06/01/2016 Urinary tract infection 08/28/2015 Prostatic hyperplasia, benign localized 02/14/20 12 Resolved Problems Problem Noted Date Diagnosed Date Resolved Date Elevated prostate specific antigen (PSA) 08/21/2012 11/13/2021 Encounter for preventive health examination 02/14/2012 11/16/2021 Immunizations Immunization Administration Dates Next Due Fluzone High Dose - >Age 65 (Prefilled Syringe) 04/14/2020,04/01/2019 Influenza (Generic) 04/21/2015 MODERNA COVID-19 (12+) MRNA, LNP-S, PF, 100 MCG/ 0.5 ML DOSE 09/12/2020,08/15/2020 Pneumococcal (Pneumovax 23) 04/14/2020 Pneumococcal (Prevnar 13) 05/11/2019,10/08/2014 Td, Adsorbed, Preservative F ree, Adult Use, Lf Unspecified 08/06/2002 Family History Medical History Relation Comments Cancer Father Heart Disease Father No Known Problems Maternal Aunt No Known Problems Maternal Grandfather No Known Problems Maternal Grandmother No Known Problems Maternal Uncle CHF Mother COPD Mother No Known Problems Paternal Aunt No Known Problems Paternal Grandfather No Known Problems Paternal Grandmother No Known Problems Paternal Uncle Relation Status Comments Daughter 1 Alive Daughter 2 Alive Daughter 3 Alive Daughter 4 Alive Father colon cancer Maternal Aunt Maternal Grandfather Maternal Grandmother Maternal Uncle Mother (Age 80) Paternal Aunt Paternal Grandfather Paternal Grandmother Paternal Uncle Social History Tobacco Use Types Packs/Day Years Used Date Smoking Tobacco: Never Smokeless Tobacco: Never Tobacco Cessation:Counseling Given: No Alcohol Use Standard Drinks/Week Comments Yes 11.7 [...] Sign Reading Time Taken Comments Blood Pressure 151/80 05/28/2022 8:26 AM ODD JOBS DAY WORKER Pulse 87 05/28/2022 8:26 AM ODD JOBS DAY WORKER Temperature 37 C (98.6 F) 05/28/2022 8:26 AM ODD JOBS DAY WORKER Respiratory Rate 18 05/28/2022 8:26 AM ODD JOBS DAY WORKER Oxygen Saturation 97% 05/28/2022 8:26 AM ODD JOBS DAY WORKER Inhaled Oxygen Concentration - - Weight 77.6 kg (171 lb) 05/28/2022 8:26 AM ODD JOBS DAY WORKER Height 182.9 cm (6') 05/28/2022 8:26 AM ODD JOBS DAY WORKER Body Mass Index 23.19 05/28/2022 8:26 AM ODD JOBS DAY WORKER Plan of Treatment Health Maintenance Due Date Last Done Comments Hepatitis C 09[birth year]25/1963 Zoster Vaccines (1 of 2) 09/25/1995 DTaP, Tdap and Td Vaccines ( 1 - Tdap) 08/07/2002 08/06/2002 RSV Immunization or 60+ Years (1 - 1-dose 75+ series) 2020 COVID-19 Vaccine (3 - 2024-2 6 season) 2025 09/12/2020, 08/15/2020 Pneumococcal Vaccine: 50+ Years Completed 04/14/2020, 05/11/2019, 10/08/2014 Meningococcal B Vaccine Aged Out No l onger eligible based on patient's age to complete this topic Meningococcal Vaccine Aged Out No yesenia keiry eligible based on patient's age to complete this topic RSV Immunizations Under 20 Months Aged Out No longer eligible b ased on patient's age to complete this topic Insurance MEDICARE PART A Advance Directives Documents on File Type Date Recorded Patient Hat Blocker Expl anation Advance Directives and Living Will 01/28/2019 7:54 AM 06/13/2009 [place]ORT FORM POA FOR HEALTHCARE Advance Directives and Living Will 08/24/2016 POWER OF PATIENT MANAGER * Full Code (Latest Code Status on File) Date Activated Date Inactivated Comments 05/07/2021 11:40 AM 05/07/2021 2:11 PM * Full Code Date Activated Date Inactivated Comments 01/26/2019 11:10 PM 01/30/2019 6:16 PM Care Teams Group Sales Coordinator Relationship Specialty Start Date End Date Alonso Gutierrez MD PCP - General 12/21/16
--- OUTSIDE RECORDS SUMMARY | 2025-03-28 14:35 | XMS_ITS | Encounter Summary ---
Author Organization [facility] Facility Care Team Providers Care Shellfish Processing Laborer Name Role Phone Alonso Gutierrez MD Primary Care [facility] Encounter Details Date Type Department Care Team (Latest Contact Info) Description 03/25/2017 Orders Only [facility] CLINCONV ProviderSissy MD [address] [place] [address] Social History Tobacco Use Types Packs/Day Years Used Date Smoking Tobacco: Never Sex and Gender Information Value Date Recorded Sex Assigned at Not on file Legal Sex Male 2:12 AM ELECTRICIAN SOUND Gender Identity Male 04/17/2021 11:51 AM CDT Sexual Orientation Straight 04/17/2021 11 :51 AM CDT documented as of this encounter Plan of Treatment Not on file documented as of this encounter Procedures Procedure Name Priority Date/Time Associated Diagnosis Comments SCAN - LABS 03/28/2017 12:00 AM CDT documented in this encounter Results * SCAN - LABS (03/28/2017 12:00 AM CDT) Narrative 03/28/2017 12:00 AM CDT Ordered by an unspecified [...] documented as of this encounter Care Teams Shellfish Processing Laborer Relationship Specialty Start Date End Date Alonso Gutierrez MD [address] [address] PCP - General 08/18/16 documented as of this encounter
[2025-03-28 17:20] LABS: Add Urine Microscopic? YES; Appearance Urine Clear (Clear); Glucose Urine UA Negative (Negative); Leukocyte Esterase Ur Negative LEU/UL (Negative); Nitrate Urine Negative (Negative); Non Pathogenic Casts 0-2; Specific Grav Ur 1.017 (1.001-1.035)
== END 2025-03-28 12:03 | disposition home or self-care (01) ==
LOC: ANHGOSHLAB 12:04
DX: N20.0 Calculus of kidney (principal)
CPT/HCPCS: 81001

== ENCOUNTER 2025-03-29 13:30 | Emergency (ER) | payer MEDICARE, BC, SELFPAY ==
--- NOTE | ~2025-03-29 | CT_ITS ---
EXAMINATION: CT abdomen pelvis wo con DATE: 03/29/2025 17:37 INDICATION: Hematuria TECHNIQUE: Computed tomography (CT) of the abdomen and pelvis was performed without intravenous contrast. The dose-length product was 357.87 mGy-cm. Automated exposure control and iterative reconstruction technique were employed. COMPARISON: None. FINDINGS: There is dependent atelectasis of the lung bases. Heart size normal. There is atherosclerosis of the aorta without aneurysm. No lymphadenopathy. The liver, spleen, pancreas, adrenal glands are unremarkable. Nonobstructing 4 mm right renal stone. There are are parapelvic cysts of the right kidney. There are multiple left renal and parapelvic cysts. There is an intermediate density exophytic from the left kidney posteriorly measuring 2.[address] or MRI without and with contrast recommended. There is an exophytic hypodense mass of the left kidney measuring 3.9 cm located medially. No definite ureteral stone or hydronephrosis. Streak artifact from right hip arthroplasty limits evaluation for distal ureteral stone. Prostate gland is enlarged. There are extensive surgical changes of the lower lumbar spine and sacrum. Nonobstructive bowel gas pattern. Colonic diverticulosis without evidence for diverticulitis. No free air or free fluid. Severe lumbar spondylosis. IMPRESSION: 1. Nonobstructing 4 mm right renal stone. 2: Bilateral renal cysts with at least one left renal mass being intermediate density, most likely complicated cysts. Correlation with CT or MRI without and with contrast recommended. Reviewed, dictated and finalized at location O. IMPRESSION: 1. Nonobstructing 4 mm right renal stone. 2: Bilateral renal cysts with at least one left renal mass being intermediate d ensity, most likely complicated cysts. Correlation with CT or MRI without and w ith contrast recommended.
--- OUTSIDE RECORDS SUMMARY | 2025-03-29 13:32 | XMS_ITS | Encounter Summary ---
Author Organization [facility] Healthcare Address [address] [place] [address] Care Team Providers Care Helicopter Specialist Name Role Phone Alonso Gutierrez MD Primary Care Provi monica Reason for Visit * Reason Onset Date Comments Urinary Symptom 03/29/2025 Encounter Details Date Type Department Care Team (Late st Contact Info) Description 03/29/2025 Nurse Triage [facility] Medical Group Family Medicine [address] [place] [address] Alonso Gutierrez MD [address] [place], [place] [id number] Social History Tobacco Use Types Packs/Day Years Used Date Smoking Tobacco: Never Smokeless Tobacco: Never Alcohol Use Standard Drinks/Week Comments Yes 7 (1 standard drink = 0.6 oz pur e alcohol) PHQ-2 Answer Date Recorded PHQ-2 Total Score (If total score is 3 or more points, staff should administer the PHQ-9) 0 11/15/2024 Sex and Gender Information Value Date Recorded Sex Assigned at Not on file Legal Sex Male 2:12 AM COOKY PACKER Gender Identity Male 04/17/2021 11:51 AM CDT Sexual Orientation Straight 04/17/2021 11 :51 AM CDT documented as of this encounter Miscellaneous Notes * Telephone Encounter - Orly Rodriguez RN - 03/29/2025 12:54 PM CDT Reason for Conversation Urinary Symptom Background Patient with history of prostate cancer has had dark jamil colored urine for the past 3 days. Patient denies injury, or trauma, has no back pain. Patient has no fever. Patient is on Eliquis. Disposition Go to ED Now Patient per spouse(*HIPAA verified) will go to local hospital. Call back with new symptoms, especially those symptoms you said no to today. Patient voiced understanding. Reason for Disposition Passing pure blood or large blood clots (i.e., larger than a dime or grape) No Initial Assessment on file. No Additional Information on file. Protocols Used Urine - Blood In-Adult-OH * Telephone Encounter - Orly Rodriguez RN - 03/29/2025 12:44 PM CDT Regarding: Blood in Urine ----- Message from October sent at 03/29/2025 12:40 PM CDT ----- Symptom Based Call Chief Complaint(s): Blood in Urine Duration: 3 days Started Tuesday What type of symptom(s) is the patient experiencing? Red Flag. Is the patient concerned they are experiencing a medical emergency requiring an ambulance? No Additional Comments: Mikael has had blood in urine the last 3 days, this morning he woke up with bright red blood. He took a UA yesterday with the Urologist. During the day his urine is more clear, butduring the night and first thing in the morning it is always a lot more blood color. Urologist toldthem they could be seen nest Tuesday, but they are concerned because this is the most blood that they have seen in is urine. Please contact Mikael and Marion on the [phone] number. They would like to know what they should do or watch for because they are kind of worried about waiting all weekend. Marion's biggest scare is because of the past prostate cancer. Does message need to be routed? Yes-Action Needed documented in this encounter Plan of Treatment Not on file documented as of this encounter Visit Diagnoses Not on filedocumented in this encounter Care Teams Helicopter Specialist Relationship Specialty Start Date End Date Alonso Gutierrez MD [address] [address] PCP - General 08/18/16 documented as of this encounter
--- OUTSIDE RECORDS SUMMARY | 2025-03-29 13:32 | XMS_ITS | Encounter Summary ---
Author Organization [facility] Healthcare Address [address] [place] [address] Care Team Providers Care Soaking Pits Supervisor Name Role Phone Alonso Gutierrez MD Primary Care [facility] Encounter Details Date Type Department Care Team (Late st Contact Info) Description 03/29/2025 Telephone [facility] Medical Group Family Medicine [address] [place] [address] Alonso Gutierrez MD [address] [place] [address] Social History Tobacco Use Types Packs/Day Years [...] on file Legal Sex Male 2:12 AM AEMT Gender Identity Male 04/17/2021 11:51 AM CDT Sexual Orientation Straight 04/17/2021 11 :51 AM CDT documented as of this encounter Plan of Treatment Not on file documented as of this encounter Visit Diagnoses Not on filedocumented in this encounter Care Teams Soaking Pits Supervisor Relationship Specialty Start Date End Date Alonso Gutierrez MD [address] [place] [address] PCP - General 08/18/16 documented as of this encounter
--- OUTSIDE RECORDS SUMMARY | 2025-03-29 13:32 | XMS_ITS | Clinical Summary ---
Author Organization [facility] Address [address] [place] [address] Care Team Providers Care Clinical Account Liaison Name Role Phone Alonso Gutierrez MD [facility] Source Comments [facility],non-owned Affiliates and Associated Physician Practices is amultiple site organization consisting of ambulatory clinics and hospital sitesin [place], [place], [place] and [place]. This disclosure is being madepursuant to the Care Everywhere program and may not contain all information available regarding this patient. Last updated 18.[facility] Allergies No known active allergies Medications * Be aware that medications may not be up to date on this document. Alwaysverify current medications with the patient. gabapentin (NEURONTIN) 100 MG capsule Take 1,200 mg by mouth TID. 05/03/2017 Active aspirin (ASPIRIN) 325 MG tablet Take 325 mg by mouth 01/30/2019 Active multivitamin daily tablet Take 1 tablet by mouth daily with food Active [place]-3 Fatty Acids (FISH OIL) 1000 MG capsule [...] on file Legal Sex Male 5:13 PM MOLTEN IRON POURER Gender Identity Not on file Sexual Orientation [...] complete this topic Insurance [employer] Care Teams Clinical Account Liaison Relationship Specialty Start Date End Date Alonso Gutierrez MD PCP - General 05/02/17
--- OUTSIDE RECORDS SUMMARY | 2025-03-29 13:32 | XMS_ITS | Encounter Summary ---
Author Organization [facility] Facility Care Team Providers Care Supervisor Rubber Covering Name Role Phone Alonso Gutierrez MD Primary Care [facility] Encounter Details Date Type Department Care Team (Latest Contact Info) Description 12/21/2016 Orders Only [facility] CLINCONV ProviderSissy MD [address] [place] [address] Social History Tobacco Use Types Packs/Day Years Used Date Smoking Tobacco: Never Assessed Sex and Gender Information Value Date Recorded Sex Assigned at Not on file Legal Sex Male 2:12 AM BUILDING APPRAISER Gender Identity Male 04/17/2021 11:51 AM CDT [...] documented as of this encounter Care Teams Supervisor Rubber Covering Relationship Specialty Start Date End Date Alonso Gutierrez MD [address] [address] PCP - General 08/18/16 documented as of this encounter
--- OUTSIDE RECORDS SUMMARY | 2025-03-29 13:32 | XMS_ITS | Encounter Summary ---
Author Organization [facility] Address [address] [place] [address] Care Team Providers Care Manager Of Operations Name Role Phone Alonso Gutierrez MD Primary Care 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 FUNDRAISER Gender Identity Not on file Sexual Orientation Not on file documented as of this encounter Plan of Treatment Not on file documented as of this encounter Procedures Procedure Name Priority Date/Time Associated Diagnosis Comments DERMATOPATHOLOGY Routine 02/17/2021 3:33 AM CDT documented in this encounter Results * DERMATOPATHOLOGY (02/17/2021 3:33 AM CDT) Case Report Dermatopathology Report Case: [id number] Authorizing Provider: Noel Muñoz MD Collected: 02/17/2021 03:33 AM Ordering Location: [facility] DermPath Lab Received: 02/19/2021 07:47 AM Pathologist: [...] SCCA vs SK vs melanoma. Path # [id number]. 12:52 PM CDT DERMATOPATHOLOGY LABORATORY Gross Description Specimen A: Received is one formalin filled container labeled with the patient's name and designated left mid back. The specimen consists of a shave biopsy measuring [id number]. Jar 0. 12:52 PM CDT DERMATOPATHOLOGY LABORATORY [...] characteristic determined by the Dermatopathology Laboratory at [facility], directed by Dr. Serge Wesley. These tests need not be, and therefore are not, approved by the [place] Food and Drug Administration. The tests are used for clinical purposes. Billing Codes Specimen Charges Stain Charges 14214 1 12:52 PM CDT DERMATOPATHOLOGY LABORATORY Embedded Images 12:52 PM CDT DERMATOPATHOLOGY LABORATORY Pathology/Cytolo gy TISSUE SPECIMEN FROM SKIN / Unknown 02/17/2021 3:33 AM CDT 02/19/2021 7:47 AM CDT us Noel Muñoz MD LAB - PATHOLOGY/CYTOLOGY ORDER YUDITH Final Result DERMATOPATHOLOGY LABORATORY [facility] - Department of Dermatology [facility] Medicine [address] [place] [address], [address] [phone] documented in this encounter Visit Diagnoses Not on filedocumented in this encounter Care Teams Manager Of Operations Relationship Specialty Start Date End Date Alonso Gutierrez MD PCP - General 05/02/17 documented as of this encounter
--- OUTSIDE RECORDS SUMMARY | 2025-03-29 13:32 | XMS_ITS | Encounter Summary ---
Author Organization [facility] Address [address] [place] [place] [address] Care Team Providers Care Court Messenger Name Role Phone Alonso Gutierrez MD Primary Care [facility] Encounter Details Date Type Department Care Team (Late st Contact Info) Description 11/06/2021 Lab Requisition [facility] DermPath Lab [address] [place] [address] Noel Muñoz MD [address] [place] [address] Social History Tobacco Use Types Packs/Day Years Used Date Smoking Tobacco: Never Smokeless Tobacco: Never Sex and Gender Information Value Date Recorded Sex Assigned at Not on file Legal Sex Male 5:13 PM DOCUMENT CONTROLLER Gender Identity Not on file Sexual Orientation Not on file documented as of this encounter Plan of Treatment Not on file documented as of this encounter Procedures Procedure Name Priority Date/Time Associated Diagnosis Comments DERMATOPATHOLOGY Routine 11/04/2021 12:0 0 AM CDT documented in this encounter Results * DERMATOPATHOLOGY (11/04/2021 12:00 AM CDT) Case Report Dermatopathology Report Case: [id number] Authorizing Provider: Noel Muñoz MD Collected: 11/04/2021 12:00 AM Ordering Location: [facility] DermPath Lab Received: 11/06/2021 07:42 AM Pathologist: Lilian Doll MD Specimen: Skin, right upper [place] 2 1:20 PM CDT DERMATOPATHOLOGY LABORATORY Final Diagnosis Specimen A. 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 Path # [id number]. 2 1:20 PM CDT DERMATOPATHOLOGY LABORATORY Gross Description Specimen A: Received is one formalin filled container labeled with the patient's name and designated right upper [place]. The specimen consists of a shave biopsy measuring [id number], bisected. Jar 0+. 2 1:20 PM CDT [...] characteristic determined by the Dermatopathology Laboratory at [facility], directed by Dr. Serge Wesley. These tests need not be, and therefore are not, approved by the [place] Food and Drug Administration. The tests are used for clinical purposes. Billing Codes Specimen Charges Stain Charges 43101 1 2 1:20 PM CDT DERMATOPATHOLOGY LABORATORY Embedded Images 2 1:20 PM CDT DERMATOPATHOLOGY LABORATORY Pathology/Cytolog y TISSUE SPECIMEN FROM SKIN / Unknown 11/04/2021 11/06/2021 7:42 AM CDT us Noel Muñoz MD LAB - PATHOLOGY/CYTOLOGY ORDER YUDITH Final Result DERMATOPATHOLOGY LABORATORY [facility] - Department of Dermatology [address], [address] [phone] documented in this encounter Visit Diagnoses Not on filedocumented in this encounter Care Teams Court Messenger Relationship Specialty Start Date End Date Alonso Gutierrez MD PCP - General 05/02/17 documented as of this encounter
--- OUTSIDE RECORDS SUMMARY | 2025-03-29 13:33 | XMS_ITS | Clinical Summary ---
Author Organization [facility] Address [address] [place] [address] Care Team Providers Care Adapted Physical Education Teacher Name Role Phone Alonso Gutierrez MD Primary [...] Left sided colitis 11/04/2020 2 Line sepsis ([facility]) 11/04/20202021 Nasal congestion with rhinorrhea 11/04/2020 10/02/2021 Upper respiratory infection 11/04/2020 10/02/2021 Worsening pneumonia 11/04/2020 10/03/19 22 Cubital tunnel syndrome on left 02/25/2020 10/02/2021 Irregular heart beat 01/29/201910/02/ 022 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[facility]) 01/30/20 19 10/02/2021 Dislocation of hip, posterio r, right, closed (CMS/HCC) 01/21/2019 10/02/2021 Overview (01/21/2019): Added automatically from request for surgery [id number] Arthritis of carpometacarpal (CMC) joint of right thumb 01/17/2019 10/02/2021 Aseptic loosening of prosthe tic hip, initial encounter 01/02/2019 10/02/2021 Overview (01/02/2019): Added automatically from request for surgery [id number] Recurrent dislocation, right hip 12/02/2018 11/04/2020 Overview (12/03/2018): Added automatically from request for surgery [id number] Primary osteoarthritis of fi rst carpometacarpal joint [...] Encounters Date Type Department Care Team Description 03/29/[address] [facility] Family Medicine [address] [place] [address] Alonso Gutierrez MD 03/29/[address] [facility] Family Medicine [address] [place] [address] Alonso Gutierrez MD 03/25/2025 8:45 AM CDT Office Visit [facility] Cardiology [address] [place] [id number] Abhishek Newman MD Paroxysmal atrial fibrillation (HCC) (Primary Dx); Essential hypertension 02/07/2025 Telephone [facility] Family Medicine [address] [place] [address] Alonso Gutierrez MD Additional Services [...] 08/06/2002 Surgical History Surgery Date Site/Laterality Comments SC ARTHRD ANT INTERBODY MIN DSC LUMBAR Lumbar Vertebral Fusion - (Added by TW Conv) SC DSTRJ NEUROLYTIC AGENT OT HER PERIPHERAL NERVE [...] Father Alonzo Carrera Heart disease Father Alonzo Jaquez his tory of cardiac disorder - (Added by TW Conv) Heart failure Father Alonzo Jaquez his tory of congestive heart failure - (Added by TW Conv) Lung disease Father Alonzo Carrera Family hist ory of lung disease - (Added by TW Conv) Obesity Father Alonzo Carrera COPD Mother Leia Carrera Lung disease Mother Leia Carrera Family histor [...] on file Legal Sex Male 2:12 AM CONTRACT MANAGEMENT SPECIALIST Gender Identity Male 04/17/2021 11:51 AM CDT [...] 05/11/2019, 10/08/2014 Medical Devices Implanted Type Area Edi Coordinator Device Identifier Shelf Expiration Date Model / Serial / Lot Other - See Comments-01/06/20 17 Implanted:01/05 (Quantity not on file) Other - see comments Right: Hip [employer] 3122-040 Smartset Medium Viscosity Cement 40gm Bone Sterile - [id number] Implanted:Qty: 1 on 01/22/2019 by Fredis Gregory MD at [facility] Right: Hip [employer] [id number] / / [id number] [employer] [id number] Articul/Cong 28mm Sleeve Total Stabilize Hip +8.5mm 12/14 Taper Latex Free - [id number] Implanted:Qty: 1 on 01/22/2019 by Fredis Gregory MD at [facility] Right: Hip [employer] [id number] / / [id number] Bi-Mentum Pe Liner Implanted:Qty: 1 on 01/22/2019 by Fredis Gregory MD at [facility] Right: Hip DEPUY SYNTHES [employer] [id number] / / [employer] [id number] Endurance Smartset Cement 20gm Bone - [id number] Implanted:Qty: 1 on 01/22/2019 by Fredis Gregory MD at [facility] Right: Hip [employer] [id number] / / [id number] Bi-Mentum Pressfit Cup 47 Implanted:Qty: 1 on 01/23/2019 by Fredis Gregory MD at [facility] Right: Hip DEPUY SYNTHES [employer] [id number] / / [id number] Procedures Procedure Name Priority Date/Time Associated Diagnosis Comments COLONOSCOPY Routine 01/23/2019 from Last 3 Months or Most Recently Relevant to Health Maintenance Results * Colonoscopy (01/23/2019) Anatomical Region Laterality Modality Other Historical Provider ENDOSCOPY PROCEDURES Kaitlin l Result from Last 3 Months or Most Recently Relevant to Health Maintenance Insurance [facility] MEDICARE MEDICARE [facility] FEDERAL MEDICARE MEDICARE Advance Directives For more information, please contact: [phone] * Full Code (Latest Code Status on File) Date Activated Date Inactivated Comments 01/22/2019 4:20 AM 01/26/2019 9:25 PM Care Teams Adapted Physical Education Teacher Relationship Specialty Start Date End Date Alonso Gutierrez MD [address] [facility] [address] [place] [address] PCP - General 08/18/16
--- OUTSIDE RECORDS SUMMARY | 2025-03-29 13:33 | XMS_ITS | Clinical Summary ---
Author Organization [facility] Address [facility] [place] [address] Care Team Providers Care Golf Cart Mechanic Name Role Phone Alonso Gutierrez MD Primary [...] Date Diagnosed Date Malignant neoplasm of prostate (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) 01/29/2019 Irregular heart beat 01/29/2019 History of [...] Comments Blood Pressure 151/80 05/28/2022 8:26 AM 3D ANIMATOR Pulse 87 05/28/2022 8:26 AM 3D ANIMATOR Temperature 37 C (98.6 F) 05/28/2022 8:26 AM 3D ANIMATOR Respiratory Rate 18 05/28/2022 8:26 AM 3D ANIMATOR Oxygen Saturation 97% 05/28/2022 8:26 AM 3D ANIMATOR Inhaled Oxygen Concentration - - Weight 77.6 kg (171 lb) 05/28/2022 8:26 AM 3D ANIMATOR Height 182.9 cm (6') 05/28/2022 8:26 AM 3D ANIMATOR Body Mass Index 23.19 05/28/2022 8:26 AM 3D ANIMATOR Plan of Treatment Health Maintenance Due Date [...] Documents on File Type Date Recorded Patient Lot Porter Expl anation Advance Directives and Living Will 01/28/2019 7:54 AM 06/13/2009 [place] SHORT FORM POA FOR HEALTHCARE Advance Directives and Living Will 08/24/2016 POWER OF WATERWORKS PUMP STATION OPERATOR * Full Code (Latest Code Status on File) Date Activated Date Inactivated Comments 05/07/2021 11:40 AM 05/07/2021 2:11 PM * Full Code Date Activated Date Inactivated Comments 01/26/2019 11:10 PM 01/30/2019 6:16 PM Care Teams Golf Cart Mechanic Relationship Specialty Start Date End Date Alonso Gutierrez MD PCP - General 12/21/16
--- OUTSIDE RECORDS SUMMARY | 2025-03-29 13:33 | XMS_ITS | Encounter Summary ---
Author Organization [facility] Facility Care Team Providers Care Veneer Supervisor Name Role Phone Alonso Gutierrez MD Primary Care [facility] mon[facility] Alonso Gutierrez MD Primary Care [facility] Encounter Details Date Type Department Care Team (Latest Contact Info) Description 02/19/2016 Orders Only [facility]IN[facility] ProviderSissy MD [address] [place] [address] Social History Tobacco Use Types Packs/Day Years Used Date Smoking Tobacco: Never Assessed Sex and Gender Information Value Date Recorded Sex Assigned at Not on file Legal Sex Male 2:12 AM ROLLER MACHINE OPERATOR Gender Identity Male 04/17/2021 11:51 AM CDT [...] documented as of this encounter Care Teams Veneer Supervisor Relationship Specialty Start Date End Date Alonso Gutierrez MD [address] [place] [address] PCP - General 08/18/16 Alonso Gutierrez MD [address] [place] [address] PCP - General 07/22/11 08/17/16 documented as of this encounter
--- OUTSIDE RECORDS SUMMARY | 2025-03-29 13:33 | XMS_ITS | Encounter Summary ---
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 Historical Provider [...] documented as of this encounter Care Teams Stoner Hand Relationship Specialty Start Date End Date Alonso Gutierrez MD [address] [address] PCP - General 08/18/16 Alonso Gutierrez MD [address] [address] PCP - General 07/22/11 08/17/16 documented as of this encounter
--- OUTSIDE RECORDS SUMMARY | 2025-03-29 13:33 | XMS_ITS | Encounter Summary ---
Author Organization [facility] Address [address] [place] [address] Care Team Providers Care Business Office Representative Name Role Phone Alonso Gutierrez MD Primary Care Provider Encounter Details Date Type Department Care Team (Late st Contact Info) Description 01/31/2019 Hospital Follow-up Call [facility] [place] [address] Cee Kwan Social History Tobacco Use Types [...] Yes 01/26/2019 9:52 PM CDT Marly Moseley, PILOT-CAPRICE Active * Do you have difficulty dressing [...] on filedocumented in this encounter Care Teams Business Office Representative Relationship Specialty Start Date End Date Alonso Gutierrez MD PCP - General 12/21/16 documented as of this encounter
--- OUTSIDE RECORDS SUMMARY | 2025-03-29 13:33 | XMS_ITS ---
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[facility]) 01/30/20 19 10/02/2021 Dislocation of hip, posterio r, right, closed ([facility]) 01/21/2019 10/02/2021 Overview (01/21/2019): Added automatically from request for surgery [id number] Arthritis of carpometacarpal (CMC) joint of right thumb 01/17/2019 10/02/2021 Aseptic loosening of prosthe tic hip, initial encounter 01/02/2019 10/02/2021 Overview (01/02/2019): Added automatically from request for surgery [id number] Recurrent dislocation, right hip 12/02/2018 11/04/2020 Overview (12/03/2018): Added automatically from request for surgery [id number] Primary osteoarthritis of fi rst carpometacarpal joint [...]
--- OUTSIDE RECORDS SUMMARY | 2025-03-29 13:33 | XMS_ITS | Encounter Summary ---
Author Organization [facility] Facility Care Team Providers Care Classroom Technology Coach Name Role Phone Alonso Gutierrez MD Primary Care [facility] Encounter Details Date Type Department Care Team (Latest Contact Info) Description 09/09/2016 Orders Only [facility] CLINCONV ProviderSissy MD [address] [place], [place] [phone] Social History Tobacco Use Types Packs/Day Years Used Date Smoking Tobacco: Never Assessed Sex and Gender Information Value Date Recorded Sex Assigned at Not on file Legal Sex Male 2:12 AM MRI SPECIAL PROCEDURES TECHNOLOGIST Gender Identity Male 04/17/2021 11:51 AM CDT Sexual Orientation Straight 04/17/2021 11 :51 AM CDT documented as of this encounter Plan of Treatment Not on file documented as of this encounter Procedures Procedure Name Priority Date/Time Associated Diagnosis Comments SCAN - LABS 09/10/2016 12:00 AM MRI SPECIAL PROCEDURES TECHNOLOGIST SCAN - LABS 09/09/2016 12:00 AM MRI SPECIAL PROCEDURES TECHNOLOGIST documented in this encounter Results * SCAN - LABS (09/10/2016 12:00 AM MRI SPECIAL PROCEDURES TECHNOLOGIST) Narrative 09/10/2016 12:00 AM MRI SPECIAL PROCEDURES TECHNOLOGIST Ordered by an unspecified provider. Historical Provider Final Res ult * SCAN - LABS (09/09/2016 12:00 AM MRI SPECIAL PROCEDURES TECHNOLOGIST) Narrative 09/09/2016 12:00 AM MRI SPECIAL PROCEDURES TECHNOLOGIST Ordered by an unspecified provider. us Historical [...] documented as of this encounter Care Teams Classroom Technology Coach Relationship Specialty Start Date End Date Alonso Gutierrez MD [address] [address] PCP - General 08/18/16 documented as of this encounter
--- OUTSIDE RECORDS SUMMARY | 2025-03-29 13:33 | XMS_ITS | Encounter Summary ---
Author Organization [facility] Facility Care Team Providers Care Machine Gun Mechanic Name Role Phone Alonso Gutierrez MD Primary Care [facility] Encounter Details Date Type Department Care Team (Latest Contact Info) Description 10/06/2016 Orders Only [facility] CLINCONV ProviderSissy MD [address] [place] [address] Social History Tobacco Use Types Packs/Day Years Used Date Smoking Tobacco: Never Assessed Sex and Gender Information Value Date Recorded Sex Assigned at Not on file Legal Sex Male 2:12 AM COUPON MANIFEST CLERK Gender Identity Male 04/17/2021 11:51 AM CDT [...] documented as of this encounter Care Teams Machine Gun Mechanic Relationship Specialty Start Date End Date Alonso Gutierrez MD [address] [address] PCP - General 08/18/16 documented as of this encounter
--- OUTSIDE RECORDS SUMMARY | 2025-03-29 13:33 | XMS_ITS | Encounter Summary ---
Author Organization [facility] Address [facility] [place] [address] Care Team Providers Care Slip Cover Estimator Name Role Phone Alonso Gutierrez MD Primary Care Provider Encounter Details Date Type Department Care Team (Late st Contact Info) Description 08/02/2022 Perfect Message [facility] Patient Accounts [address] [place], [place] [phone] [facility] Financial Assistance Social History Tobacco Use [...] Total Score: 0 05/15/20 21 8:40 AM GAME DEVELOPER documented as of this encounter Care Teams Slip Cover Estimator Relationship Specialty Start Date End Date Alonso Gutierrez MD PCP - General 12/21/16 documented as of this encounter
--- OUTSIDE RECORDS SUMMARY | 2025-03-29 13:33 | XMS_ITS | Encounter Summary ---
Author Organization [facility] Facility Care Team Providers Care Gymnastics Coach Or Instructor Name Role Phone Alonso Gutierrez MD Primary Care Provi monica Alonso Gutierrez MD Primary Care Pro[facility] mon[facility] Encounter Details Date Type Department Care Team (Latest Contact Info) Description 06/18/2016 Orders Only [facility] CLINCONV ProviderSissy MD [address] [place] [address] Social History Tobacco Use Types Packs/Day Years Used Date Smoking Tobacco: Never Assessed Sex and Gender Information Value Date Recorded Sex Assigned at Not on file Legal Sex Male 2:12 AM RN DIABETES Gender Identity Male 04/17/2021 11:51 AM CDT Sexual Orientation Straight 04/17/2021 11 :51 AM CDT documented as of this encounter Plan of Treatment Not on file documented as of this encounter Procedures Procedure Name Priority Date/Time Associated Diagnosis Comments PROCEDURE - RESULT 06/18/2016 12 :00 AM RN DIABETES documented in this encounter Results * PROCEDURE - RESULT (06/18/2016 12:00 AM RN DIABETES) Narrative 06/18/2016 12:00 AM RN DIABETES Ordered by an unspecified provider. Historical Provider [...] documented as of this encounter Care Teams Gymnastics Coach Or Instructor Relationship Specialty Start Date End Date Alonso Gutierrez MD [address] [address] PCP - General 08/18/16 Alonso Gutierrez MD [address] [address] PCP - General 07/22/11 08/17/16 documented as of this encounter
--- OUTSIDE RECORDS SUMMARY | 2025-03-29 13:33 | XMS_ITS | Encounter Summary ---
Author Organization [facility] Facility Care Team Providers Care Supply Aide Name Role Phone Alonso Gutierrez MD Primary Care [facility] Encounter Details Date Type Department Care Team (Latest Contact Info) Description 03/25/2017 Orders Only [facility] CLINCONV ProviderSissy MD [address] [place] [address] Social History Tobacco Use Types Packs/Day Years Used Date Smoking Tobacco: Never Sex and Gender Information Value Date Recorded Sex Assigned at Not on file Legal Sex Male 2:12 AM PASTEURIZER HELPER Gender Identity Male 04/17/2021 11:51 AM [...] documented as of this encounter Care Teams Supply Aide Relationship Specialty Start Date End Date Alonso Gutierrez MD [address] [address] PCP - General 08/18/16 documented as of this encounter
[2025-03-29 14:09] VITALS: BP 112/58; PULSE 84; RESP 16; TEMP 36.6; O2SAT 97
--- NOTE | 2025-03-29 15:14 | ED_ITS ---
HPI - Male Genitourinary General Chief complaint: Urogenital-Male <Gudelia Villeda PA-C - Last Filed: 04/01/25 10:18> Stated complaint: blood in urine, on eliquis <Gudelia Villeda PA-C - Last Filed: 04/01/25 10:18> Time Seen by Provider: 03/29/25 15:14 <Gudelia Villeda PA-C - Last Filed: 04/01/25 10:18> Focused HPI: This is a 79 year old male that presents to the ER for hematuria. Ongoing over the last couple of days. Reports history of kidney stones. He had a urinalysis yesterday which showed red blood cells. He is on eliquis. Denies fevers, vomiting, dysuria. GENERAL: Well-appearing, well-nourished, and in no acute distress. HEAD: Normocephalic, atraumatic. CHEST: Clear to auscultation. ?No respiratory distress. HEART: Regular rate and rhythm.? NEURO: ?Alert and oriented x3. Patient screened in triage and initial orders placed.? ?Additional care and disposition to be based upon?diagnostic testing and treatment. <Gudelia Villeda PA-C - Last Filed: 04/01/25 10:18> History of Present Illness HPI Narrative: I agree with the above HPI <Harshad Pat MD - Last Filed: 04/02/25 07:46> Related Data Allergies/Adverse reactions: Allergies Allergy/AdvReac Type Severity Reaction Status Date / Time No Known Allergies Allergy Verified 03/29/25 14:11 <Gudelia Villeda PA-C - Last Filed: 04/01/25 10:18> Review of Systems 2 Review of Systems: All systems reviewed & are unremarkable except as noted in HPI and below <Gudelia Villeda PA-C - Last Filed: 04/01/25 10:18> PMFSH Family History Family History: Family History (Updated 05/06/16 @ 09:56 by DOCTOR UNKNOWN) Mother Family history of chronic obstructive pulmonary disease Father Carcinoma of colon <Gudelia Villeda PA-C - Last Filed: 04/01/25 10:18> Social History Social History: Social History Smoking status: Never smoker Alcohol intake: current <Gudelia Villeda PA-C - Last Filed: 04/01/25 10:18> Exam 2 Narrative: APPEARANCE: Well appearing, no pain, no distress, well-nourished. HEAD: normocephalic, atraumatic. EYES: PERRLA/EOMI, conjunctivae clear. NOSE: Normal no drainage EARS:TMS clear with good light reflex. THROAT: Pharynx clear, no exudate. NECK: Supple. No adenopathy, no masses. RESPIRATORY: Airway patent, respirations nonlabored. Clear to auscultation bilaterally, no rales, rhonchi, wheezing. CARDIOVASCULAR: Regular rate and rhythm without murmurs rubs or gallops. ABDOMINAL: Soft, nontender, nondistended, normal bowel sounds MUSCULOSKELETAL: Moves all extremities. Strength/ROM intact, No edema, No calf tenderness. NEURO: Alert. Cranial nerves II through XII intact. Good gait. Good coordination SKIN: Warm, dry. Normal Color <Harshad Pat MD - Last Filed: 04/02/25 07:46> Course Vital Signs Vital signs: Vital Signs Temperature 97.9 F 03/29/25 14:09 Pulse Rate 84 03/29/25 14:09 Respiratory Rate 16 03/29/25 14:09 Blood Pressure 112/58 L 03/29/25 14:09 Pulse Oximetry 97 03/29/25 14:09 Temperature 97.9 F 03/29/25 18:40 Pulse Rate 62 03/29/25 18:40 Respiratory Rate 16 03/29/25 14:09 Blood Pressure 134/68 03/29/25 18:40 Pulse Oximetry 99 03/29/25 18:40 <Gudelia Villeda PA-C - Last Filed: 04/01/25 10:18> Vital Signs Temperature 97.9 F 03/29/25 14:09 Pulse Rate 84 03/29/25 14:09 Respiratory Rate 16 03/29/25 14:09 Blood Pressure 112/58 L 03/29/25 14:09 Pulse Oximetry 97 03/29/25 14:09 Temperature 97.9 F 03/29/25 18:40 Pulse Rate 62 03/29/25 18:40 Respiratory Rate 16 03/29/25 14:09 Blood Pressure 134/68 03/29/25 18:40 Pulse Oximetry 99 03/29/25 18:40 <Harshad Pat MD - Last Filed: 04/02/25 07:46> MDM - Male Genitourinary MDM Narrative Medical decision making narrative: 79-year-old male presents emergency department for evaluation for intermittent hematuria. Patient did have some mild hematuria on the UA today. CT scan showed no evidence of ureteral calculi. Patient did have additional urination the emergency department that was not gross hematuria. Patient is on blood thinners. One possible etiologies patient did pass a small kidney stone. Patient was encouraged of close follow-up with Urology. All questions concerns were addressed. <Harshad Pat MD - Last Filed: 04/02/25 07:46> Differential Diagnosis Differential diagnosis: Likely urinary tract infection, urethritis, epididymitis, prostatitis and acute retention of urine <Harshad Pat MD - Last Filed: 04/02/25 07:46> Lab Data Attestation: I reviewed the patient's lab results. <Harshad Pat MD - Last Filed: 04/02/25 07:46> Result diagrams: 03/29/25 16:07 03/29/25 16:07 <Gudelia Villeda PA-C - Last Filed: 04/01/25 10:18> Labs: Lab Results 03/29/25 Range/Units 16:07 WBC 5.4 (4.5-10.0) K/mm3 RBC 4.58 L (4.6-6.20) M/mm3 Hgb 13.3 L (14.0-18.0) g/dL Hct 41.1 L (42.0-52.0) % MCV 89.7 (80-100) fl MCH 29.0 (26-34) pg MCHC 32.4 (32-36) g/dl RDW 14.4 (11.5-14.5) % Plt Count 247 (150-375) k/mm3 MPV 9.2 (7.4-10.4) fl Immature Gran % (Auto) 0.4 (0-0.5) % Neut % (Auto) 67.7 (45.5-73.1) % Lymph % (Auto) 16.9 L (18.3-44.2) % [place] % (Auto) 13.5 H (2.6-8.5) % Eos % (Auto) 1.1 (0-4.4) % Baso % (Auto) 0.4 (0.2-1.2) % Lymph # (Auto) 0.91 (0.9-3.2) K/mm3 [place] # (Auto) 0.7 H (0.1-0.6) K/mm3 Eos # (Auto) 0.1 (0-0.3) K/mm3 Baso # (Auto) 0.0 (0.0-0.1) K/mm3 Abs Immat Gran (auto) 0.02 (0.00-0.031) K/mm3 Absolute Neuts (auto) 3.7 (1.3-6.7) K/mm3 Absolute Nucleated RBC 0.000 (0.0-0.012) K/mm3 Nucleated RBC % 0.0 (0.0-0.2) % Sodium 138 (137-145) mmol/L Potassium 3.7 (3.4-5.0) mmol/L Chloride 106 (98-107) mmol/L Carbon Dioxide 28 (22-30) mmol/L Anion Gap 4 (4-12) mmol/L BUN 20 (9-20) mg/dL Creatinine 0.74 (0.7-1.3) mg/dL Estim Creat Clear Calc 76 ml/min Estimated GFR > 60 (59 - ) Glucose 93 (65-110) mg/dL Calcium 8.8 (8.4-10.2) mg/dL Total Bilirubin 0.4 (0.2-1.3) mg/dL AST 31 (17-59) U/L ALT 21 (6-50) U/L Alkaline Phosphatase 68 (38-126) U/L Total Protein 6.3 (6.3-8.2) g/dL Albumin 3.6 (3.5-5.1) g/dL Urine Color Yellow (Yellow) Urine Appearance Clear (Clear) Urine pH 6.0 (5.0-9.0) Ur Specific [place] 1.021 (1.001-1.035) Urine Protein Negative (Negative) mg/dL Urine Glucose (UA) Negative (Negative) mg/dL Urine Ketones Trace H (Negative) mg/dL Ur Blood (Man) 3+ H (Negative) Urine Nitrate Negative (Negative) Urine Bilirubin Negative (Negative) Urine Urobilinogen 1.0 (<2.0) mg/dL Leukocyte Esterase Rfl Negative (Negative) ADRIANA/UL Urine RBC >100 H (0-2) /hpf Urine WBC 0-5 (0-3) /hpf Ur Squamous Epith Cells None seen (Few) /hpf Urine Bacteria None seen /hpf Urine Casts 0-2 <Gudelia Villeda PA-C - Last Filed: 04/01/25 10:18> Lab Results 03/29/25 Range/Units 16:07 WBC 5.4 (4.5-10.0) K/mm3 RBC 4.58 L (4.6-6.20) M/mm3 Hgb 13.3 L (14.0-18.0) g/dL Hct 41.1 L (42.0-52.0) % MCV 89.7 (80-100) fl MCH 29.0 (26-34) pg MCHC 32.4 (32-36) g/dl RDW 14.4 (11.5-14.5) % Plt Count 247 (150-375) k/mm3 MPV 9.2 (7.4-10.4) fl Immature Gran % (Auto) 0.4 (0-0.5) % Neut % (Auto) 67.7 (45.5-73.1) % Lymph % (Auto) 16.9 L (18.3-44.2) % [place] % (Auto) 13.5 H (2.6-8.5) % Eos % (Auto) 1.1 (0-4.4) % Baso % (Auto) 0.4 (0.2-1.2) % Lymph # (Auto) 0.91 (0.9-3.2) K/mm3 [place] # (Auto) 0.7 H (0.1-0.6) K/mm3 Eos # (Auto) 0.1 (0-0.3) K/mm3 Baso # (Auto) 0.0 (0.0-0.1) K/mm3 Abs Immat Gran (auto) 0.02 (0.00-0.031) K/mm3 Absolute Neuts (auto) 3.7 (1.3-6.7) K/mm3 Absolute Nucleated RBC 0.000 (0.0-0.012) K/mm3 Nucleated RBC % 0.0 (0.0-0.2) % Sodium 138 (137-145) mmol/L Potassium 3.7 (3.4-5.0) mmol/L Chloride 106 (98-107) mmol/L Carbon Dioxide 28 (22-30) mmol/L Anion Gap 4 (4-12) mmol/L BUN 20 (9-20) mg/dL Creatinine 0.74 (0.7-1.3) mg/dL Estim Creat Clear Calc 76 ml/min Estimated GFR > 60 (59 - ) Glucose 93 (65-110) mg/dL Calcium 8.8 (8.4-10.2) mg/dL Total Bilirubin 0.4 (0.2-1.3) mg/dL AST 31 (17-59) U/L ALT 21 (6-50) U/L Alkaline Phosphatase 68 (38-126) U/L Total Protein 6.3 (6.3-8.2) g/dL Albumin 3.6 (3.5-5.1) g/dL Urine Color Yellow (Yellow) Urine Appearance Clear (Clear) Urine pH 6.0 (5.0-9.0) Ur Specific [place] 1.021 (1.001-1.035) Urine Protein Negative (Negative) mg/dL Urine Glucose (UA) Negative (Negative) mg/dL Urine Ketones Trace H (Negative) mg/dL Ur Blood (Man) 3+ H (Negative) Urine Nitrate Negative (Negative) Urine Bilirubin Negative (Negative) Urine Urobilinogen 1.0 (<2.0) mg/dL Leukocyte Esterase Rfl Negative (Negative) ADRIANA/UL Urine RBC >100 H (0-2) /hpf Urine WBC 0-5 (0-3) /hpf Ur Squamous Epith Cells None seen (Few) /hpf Urine Bacteria None seen /hpf Urine Casts 0-2 <Harshad Pat MD - Last Filed: 04/02/25 07:46> Imaging Data Radiologist's impression: ITS Impressions Abdomen/Pelvis CT 03/29/25 17:42 IMPRESSION: 1. Nonobstructing 4 mm right renal stone. 2: Bilateral renal cysts with at least one left renal mass being intermediate density, most likely complicated cysts. Correlation with CT or MRI without and with contrast recommended. <Gudelia Villeda PA-C - Last Filed: 04/01/25 10:18> Critical Care Time Critical Care Time Critical Care Time: No <Gudelia Villeda PA-C - Last Filed: 04/01/25 10:18> Discharge Plan Discharge Clinical Impression: Hematuria <RADHA Nava Last Filed: 04/01/25 10:18> Patient Disposition: Home <RADHA Nava Last Filed: 04/01/25 10:18> Condition: Stable <RADHA Nava Last Filed: 04/01/25 10:18> Instructions: Antibiotic Form, Hematuria (ED) <RADHA Nava Last Filed: 04/01/25 10:18> Additional Instructions: Drink plenty of fluids. Have close follow-up with Urology. If you develop any difficulty urinating please call or return to the emergency department. <Gudelia Villeda PA-C - Last Filed: 04/01/25 10:18> Patient Language: Citizen Of [place] <RADHA Nava Last Filed: 04/01/25 10:18> Follow-up/Referrals: PHYSICIAN,EXHAUST MACHINE OPERATOR [Non-Staff, Internal Medicine] Sarwat Griffith MD [Physician, Urology] <Gudelia Villeda PA-C - Last Filed: 04/01/25 10:18>
--- OUTSIDE RECORDS SUMMARY | 2025-03-29 15:23 | XMS_ITS | Encounter Summary ---
Author Organization [facility] Address [facility] [place] [address] Care Team Providers Care Cheese Tester Name Role Phone Alonso Gutierrez MD Primary Care Provider Encounter Details Date Type Department Care Team (Late st Contact Info) Description 08/02/2022 [employer] Message [facility] Patient Accounts [address] [place], [place] [phone] [facility] Financial Assistance Social History Tobacco [...] Total Score: 0 05/15/20 21 8:40 AM WATER VALVE MECHANIC documented as of this encounter Care Teams Cheese Tester Relationship Specialty Start Date End Date Alonso Gutierrez MD PCP - General 12/21/16 documented as of this encounter
--- OUTSIDE RECORDS SUMMARY | 2025-03-29 15:23 | XMS_ITS | Clinical Summary ---
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/30/20 19 10/02/2021 Dislocation of hip, posterio r, right, closed (CMS/HCC) 01/21/2019 10/02/2021 Overview (01/21/2019): Added automatically from request for surgery [id number] Arthritis of carpometacarpal (CMC) joint of right thumb 01/17/2019 10/02/2021 Aseptic loosening of prosthe tic hip, initial encounter 01/02/2019 10/02/2021 Overview (01/02/2019): Added automatically from request for surgery [id number] Recurrent dislocation, right hip 12/02/2018 11/04/2020 Overview (12/03/2018): Added automatically from request for surgery [id number] Primary osteoarthritis of fi rst carpometacarpal joint [...] Department Care Team Description 03/29/2025 Nurse Triage [facility] [address] [place] [address] Alonso Gutierrez MD 03/29/2025 Telephone [facility] [address] [place] [address] Alonso Gutierrez MD 03/25/2025 8:45 AM CDT Office Visit [facility] [address] [place] [id number] Abhishek Newman MD Paroxysmal atrial fibrillation (HCC) (Primary Dx); Essential hypertension 02/07/2025 Telephone [facility] [address] [place] [address] Alonso Gutierrez MD Additional Services [...] 08/06/2002 Surgical History Surgery Date Site/Laterality Comments UT ARTHRD ANT INTERBODY MIN DSC LUMBAR Lumbar Vertebral Fusion - (Added by TW Conv) UT DSTRJ NEUROLYTIC AGENT OT HER PERIPHERAL NERVE [...] on file Legal Sex Male 2: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 Gender Identity Male 04/17/2021 11:51 AM [...] 05/11/2019, 10/08/2014 Medical Devices Implanted Type Area Cardiopulmonary Technician And Eeg Tech Device Identifier Shelf Expiration Date Model / Serial / Lot Other - See Comments-01/06/20 17 Implanted:01/05 (Quantity not on file) Other - see comments Right: Hip [employer] 3122-040 Smartset Medium Viscosity Cement 40gm Bone Sterile - [id number] Implanted:Qty: 1 on 01/22/2019 by Fredis Gregory MD at [facility] Right: Hip [employer] [id number] / / [id number] [employer] [id number] Articul/Cong 28mm Sleeve Total Stabilize Hip +8.5mm 12/14 Taper Latex Free - [id number] Implanted:Qty: 1 on 01/22/2019 by Fredis Gregory MD at [facility] Right: Hip [employer] [id number] / / [id number] Bi-Mentum Pe Liner Implanted:Qty: 1 on 01/22/2019 by Fredis Gregory MD at [facility] Right: Hip DEPUY SYNTHES POI [id number] / / [employer] [id number] Endurance Smartset Cement 20gm Bone - [id number] Implanted:Qty: 1 on 01/22/2019 by Fredis Gregory MD at [facility] Right: Hip [employer] [id number] / / [id number] Bi-Mentum Pressfit Cup 47 Implanted:Qty: 1 on 01/23/2019 by Fredis Gregory MD at [facility] Right: Hip DEPUY SYNTHES POI [id number] / / [id number] Procedures Procedure Name Priority Date/Time Associated Diagnosis Comments COLONOSCOPY Routine 01/23/2019 from Last 3 Months or Most Recently Relevant to Health Maintenance Results * Colonoscopy (01/23/2019) Anatomical Region Laterality Modality Other Historical Provider ENDOSCOPY PROCEDURES Kaitlin l Result from Last 3 Months or Most Recently Relevant to Health Maintenance [facility] MEDICARE [facility] FEDERAL MEDICARE MEDICARE Advance Directives For more information, please contact: [phone] * Full Code (Latest Code Status on File) Date Activated Date Inactivated Comments 01/22/2019 4:20 AM 01/26/2019 9:25 PM Care Teams Porcelain Turner Relationship Specialty Start Date End Date Alonso Gutierrez MD [address] [facility] [address] [place] [address] PCP - General 08/18/16
--- OUTSIDE RECORDS SUMMARY | 2025-03-29 15:23 | XMS_ITS | Clinical Summary ---
Author Organization [facility] Address [facility] [place] [address] Care Team Providers Care Quality Internship Name Role Phone Alonso Gutierrez MD Primary [...] Date Diagnosed Date Malignant neoplasm of prostate ([facility]HCC [facility]) 11/13/2021 COVID-19 04/08/2021 Kidney stone 11/04/2020 Aseptic loosening of prosthetic hip 01/29/2019 Poliomyelitis ([facility]) 01/29/2019 Irregular heart beat 01/29/2019 History of [...] Comments Blood Pressure 151/80 05/28/2022 8:26 AM DIRECTOR MEDICAL AFFAIRS Pulse 87 05/28/2022 8:26 AM DIRECTOR MEDICAL AFFAIRS Temperature 37 C (98.6 F) 05/28/2022 8:26 AM DIRECTOR MEDICAL AFFAIRS Respiratory Rate 18 05/28/2022 8:26 AM DIRECTOR MEDICAL AFFAIRS Oxygen Saturation 97% 05/28/2022 8:26 AM DIRECTOR MEDICAL AFFAIRS Inhaled Oxygen Concentration - - Weight 77.6 kg (171 lb) 05/28/2022 8:26 AM DIRECTOR MEDICAL AFFAIRS Height 182.9 cm (6') 05/28/2022 8:26 AM DIRECTOR MEDICAL AFFAIRS Body Mass Index 23.19 05/28/2022 8:26 AM DIRECTOR MEDICAL AFFAIRS Plan of Treatment Health Maintenance Due Date [...] Documents on File Type Date Recorded Patient Shift Nurse Manager Expl anation Advance Directives and Living Will 01/28/2019 7:54 AM 06/13/2009 MD SHORT FORM POA FOR HEALTHCARE Advance Directives and Living Will 08/24/2016 POWER OF ERISA ATTORNEY * Full Code (Latest Code Status on File) Date Activated Date Inactivated Comments 05/07/2021 11:40 AM 05/07/2021 2:11 PM * Full Code Date Activated Date Inactivated Comments 01/26/2019 11:10 PM 01/30/2019 6:16 PM Care Teams Quality Internship Relationship Specialty Start Date End Date Alonso Gutierrez MD PCP - General 12/21/16
--- OUTSIDE RECORDS SUMMARY | 2025-03-29 15:23 | XMS_ITS | Encounter Summary ---
Author Organization [facility] Facility Care Team Providers Care Dietitian Chief Name Role Phone Alonso Gutierrez MD Primary Care [facility] Encounter Details Date Type Department Care Team (Latest Contact Info) Description 09/09/2016 Orders Only [facility] CLINCONV ProviderSissy MD [address] [place], [place] [phone] Social History Tobacco Use Types Packs/Day Years Used Date Smoking Tobacco: Never Assessed Sex and Gender Information Value Date Recorded Sex Assigned at Not on file Legal Sex Male 2:12 AM PC MAINTENANCE TECHNICIAN Gender Identity Male 04/17/2021 11:51 AM CDT Sexual Orientation Straight 04/17/2021 11 :51 AM CDT documented as of this encounter Plan of Treatment Not on file documented as of this encounter Procedures Procedure Name Priority Date/Time Associated Diagnosis Comments SCAN - LABS 09/10/2016 12:00 AM PC MAINTENANCE TECHNICIAN SCAN - LABS 09/09/2016 12:00 AM PC MAINTENANCE TECHNICIAN documented in this encounter Results * SCAN - LABS (09/10/2016 12:00 AM PC MAINTENANCE TECHNICIAN) Narrative 09/10/2016 12:00 AM PC MAINTENANCE TECHNICIAN Ordered by an unspecified provider. Historical Provider Final Res ult * SCAN - LABS (09/09/2016 12:00 AM PC MAINTENANCE TECHNICIAN) Narrative 09/09/2016 12:00 AM PC MAINTENANCE TECHNICIAN Ordered by an unspecified provider. us Historical [...] documented as of this encounter Care Teams Dietitian Chief Relationship Specialty Start Date End Date Alonso Gutierrez MD [address] [address] PCP - General 08/18/16 documented as of this encounter
--- OUTSIDE RECORDS SUMMARY | 2025-03-29 15:23 | XMS_ITS | Encounter Summary ---
Author Organization [facility] Healthcare Address [address] [place] [address] Care Team Providers Care Database Analyst Name Role Phone Alonso Gutierrez MD Primary Care [facility] Encounter Details Date Type Department Care Team (Late st Contact Info) Description 03/29/2025 Telephone [facility] Family Medicine [address] [place] [address] Alonso Gutierrez MD [address] [place] [address] Social History Tobacco Use Types Packs/Day Years [...] on file Legal Sex Male 2:12 AM BENEFITS CONSULTING ANALYST Gender Identity Male 04/17/2021 11:51 AM CDT Sexual Orientation Straight 04/17/2021 11 :51 AM CDT documented as of this encounter Plan of Treatment Not on file documented as of this encounter Visit Diagnoses Not on filedocumented in this encounter Care Teams Database Analyst Relationship Specialty Start Date End Date Alonso Gutierrez MD [address] [place] [address] PCP - General 08/18/16 documented as of this encounter
--- OUTSIDE RECORDS SUMMARY | 2025-03-29 15:23 | XMS_ITS | Encounter Summary ---
Author Organization [facility] Facility Care Team Providers Care Planning Division Superintendent Name Role Phone Alonso Gutierrez MD Primary Care [facility] Alonso Gutierrez MD Primary Care [facility] Encounter Details Date Type Department Care Team (Latest Contact Info) Description 02/19/2016 Orders Only [facility] CLINCONV ProviderSissy MD [address] [place] [id number] Social History Tobacco Use Types Packs/Day Years Used Date Smoking Tobacco: Never Assessed Sex and Gender Information Value Date Recorded Sex Assigned at Not on file Legal Sex Male 2:12 AM TELEGRAPH MESSENGER Gender Identity Male 04/17/2021 11:51 AM CDT [...] documented as of this encounter Care Teams Planning Division Superintendent Relationship Specialty Start Date End Date Alonso Gutierrez MD [address] [place] [address] PCP - General 08/18/16 Alonso Gutierrez MD [address] [place] [address] PCP - General 07/22/11 08/17/16 documented as of this encounter
--- OUTSIDE RECORDS SUMMARY | 2025-03-29 15:23 | XMS_ITS | Encounter Summary ---
Author Organization [facility] Address [address] [facility] [place] [address] Care Team Providers Care Bead Preparer Name Role Phone Alonso Gutierrez MD Primary Care [facility] Encounter Details Date Type Department Care Team (Late st Contact Info) Description 11/06/2021 Lab Requisition [facility] DermPath Lab [address] [place] [address] Noel Muñoz MD [address] [place] [address] Social History Tobacco Use Types Packs/Day Years Used Date Smoking Tobacco: Never Smokeless Tobacco: Never Sex and Gender Information Value Date Recorded Sex Assigned at Not on file Legal Sex Male 5:13 PM PIECE WORK CHECKER Gender Identity Not on file Sexual Orientation Not on file documented as of this encounter Plan of Treatment Not on file documented as of this encounter Procedures Procedure Name Priority Date/Time Associated Diagnosis Comments DERMATOPATHOLOGY Routine 11/04/2021 12:0 0 AM CDT documented in this encounter Results * DERMATOPATHOLOGY (11/04/2021 12:00 AM CDT) Case Report Dermatopathology Report Case: [id number] Authorizing Provider: Noel Muñoz MD Collected: 11/04/2021 12:00 AM Ordering Location: [facility] DermPath Lab Received: 11/06/2021 07:42 AM Pathologist: Lilian Doll MD Specimen: Skin, right upper [place] 2 1:20 PM CDT DERMATOPATHOLOGY LABORATORY Final Diagnosis Specimen A. 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 Path # [id number]. 2 1:20 PM CDT DERMATOPATHOLOGY LABORATORY Gross Description Specimen A: Received is one formalin filled container labeled with the patient's name and designated right upper [place]. The specimen consists of a shave biopsy measuring [id number], bisected. Jar 0+. 2 1:20 PM CDT [...] characteristic determined by the Dermatopathology Laboratory at [facility], directed by Dr. Serge Wesley. These tests need not be, and therefore are not, approved by the [place] Food and Drug Administration. The tests are used for clinical purposes. Billing Codes Specimen Charges Stain Charges 81045 1 2 1:20 PM CDT DERMATOPATHOLOGY LABORATORY Embedded Images 2 1:20 PM CDT DERMATOPATHOLOGY LABORATORY Pathology/Cytolog y TISSUE SPECIMEN FROM SKIN / Unknown 11/04/2021 11/06/2021 7:42 AM CDT us Noel Muñoz MD LAB - PATHOLOGY/CYTOLOGY ORDER YUDITH Final Result DERMATOPATHOLOGY LABORATORY [facility] - Department of Dermatology [address], [address] [phone] documented in this encounter Visit Diagnoses Not on filedocumented in this encounter Care Teams Bead Preparer Relationship Specialty Start Date End Date Alonso Gutierrez MD PCP - General 05/02/17 documented as of this encounter
--- OUTSIDE RECORDS SUMMARY | 2025-03-29 15:23 | XMS_ITS | Clinical Summary ---
Author Organization [facility] Address [address] [place] [address] Care Team Providers Care Type Rolling Machine Operator Name Role Phone Alonso Gutierrez MD [facility] Source Comments [facility],non-owned Affiliates and Associated Physician Practices is amultiple site organization consisting of ambulatory clinics and hospital sitesin [place], [place], [place] and [place]. This disclosure is being madepursuant to the Care Everywhere program and may not contain all information available regarding this patient. Last updated 18.[facility] Allergies No known active allergies Medications * Be aware that medications may not be up to date on this document. Alwaysverify current medications with the patient. gabapentin (NEURONTIN) 100 MG capsule Take 1,200 mg by mouth TID. 05/03/2017 Active aspirin (ASPIRIN) 325 MG tablet Take 325 mg by mouth 01/30/2019 Active multivitamin daily tablet Take 1 tablet by mouth daily with food Active [place]-3 Fatty Acids (FISH OIL) 1000 MG capsule [...] on file Legal Sex Male 5:13 PM SUPERINTENDENT METERS Gender Identity Not on file Sexual Orientation [...] complete this topic Insurance [employer] Care Teams Type Rolling Machine Operator Relationship Specialty Start Date End Date Alonso Gutierrez MD PCP - General 05/02/17
--- OUTSIDE RECORDS SUMMARY | 2025-03-29 15:23 | XMS_ITS | Encounter Summary ---
Author Organization [facility] Facility Care Team Providers Care Batch Weigher Name Role Phone Alonso Gutierrez MD Primary Care Provi monica Alonso Gutierrez MD Primary Care Provi mon[facility] Encounter Details Date Type Department Care Team (Latest Contact Info) Description 06/10/2016 Orders Only [facility] CLINCONV ProviderSissy MD [address] [place] [address] Social History Tobacco Use Types Packs/Day Years Used Date Smoking Tobacco: Never Assessed Sex and Gender Information Value Date Recorded Sex Assigned at Not on file Legal Sex Male 2:12 AM CLIPPER MACHINE OPERATOR Gender Identity Male 04/17/2021 11:51 AM CDT Sexual Orientation Straight 04/17/2021 11 :51 AM CDT documented as of this encounter Plan of Treatment Not on file documented as of this encounter Procedures Procedure Name Priority Date/Time Associated Diagnosis Comments PROCEDURE - RESULT 06/10/2016 12 :00 AM CLIPPER MACHINE OPERATOR documented in this encounter Results * PROCEDURE - RESULT (06/10/2016 12:00 AM CLIPPER MACHINE OPERATOR) Narrative 06/10/2016 12:00 AM CLIPPER MACHINE OPERATOR Ordered by an unspecified provider. Historical Provider [...] documented as of this encounter Care Teams Batch Weigher Relationship Specialty Start Date End Date Alonso Gutierrez MD [address] [address] PCP - General 08/18/16 Alonso Gutierrez MD [address] [address] PCP - General 07/22/11 08/17/16 documented as of this encounter
--- OUTSIDE RECORDS SUMMARY | 2025-03-29 15:23 | XMS_ITS | Encounter Summary ---
Author Organization [facility] Facility Care Team Providers Care Center Human Resources Manager Name Role Phone Alonso Gutierrez MD Primary Care [facility] Encounter Details Date Type Department Care Team (Latest Contact Info) Description 12/21/2016 Orders Only [facility] CLINCONV ProviderSissy MD [address] [place] [address] Social History Tobacco Use Types Packs/Day Years Used Date Smoking Tobacco: Never Assessed Sex and Gender Information Value Date Recorded Sex Assigned at Not on file Legal Sex Male 2:12 AM FRUIT CULLER Gender Identity Male 04/17/2021 11:51 AM CDT [...] documented as of this encounter Care Teams Center Human Resources Manager Relationship Specialty Start Date End Date Alonso Gutierrez MD [address] [address] PCP - General 08/18/16 documented as of this encounter
--- OUTSIDE RECORDS SUMMARY | 2025-03-29 15:23 | XMS_ITS ---
Author Organization [facility] Address [address] [place] [address] Care Team Providers Care Soup Person Name Role Phone Alonso Gutierrez MD Primary [...] Left sided colitis 11/04/2020 2 Line sepsis (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) 01/30/20 19 10/02/2021 Dislocation of hip, posterio r, right, closed ([facility]) 01/21/2019 10/02/2021 Overview (01/21/2019): Added automatically from request for surgery [id number] Arthritis of carpometacarpal (CMC) joint of right thumb 01/17/2019 10/02/2021 Aseptic loosening of prosthe tic hip, initial encounter 01/02/2019 10/02/2021 Overview (01/02/2019): Added automatically from request for surgery [id number] Recurrent dislocation, right hip 12/02/2018 11/04/2020 Overview (12/03/2018): Added automatically from request for surgery [id number] Primary osteoarthritis of fi rst carpometacarpal joint [...]
--- OUTSIDE RECORDS SUMMARY | 2025-03-29 15:23 | XMS_ITS | Encounter Summary ---
Author Organization [facility] Facility Care Team Providers Care Wellness Ambassador Name Role Phone Alonso Gutierrez MD Primary Care Provi monica Alonso Gutierrez MD Primary Care Provi monica Encounter Details Date Type Department Care Team (Latest Contact Info) Description 06/18/2016 Orders Only [facility] CLINCONV ProviderSissy MD [address] [place] [address] Social History Tobacco Use Types Packs/Day Years Used Date Smoking Tobacco: Never Assessed Sex and Gender Information Value Date Recorded Sex Assigned at Not on file Legal Sex Male 2:12 AM SOLAR SALES REP Gender Identity Male 04/17/2021 11:51 AM CDT Sexual Orientation Straight 04/17/2021 11 :51 AM CDT documented as of this encounter Plan of Treatment Not on file documented as of this encounter Procedures Procedure Name Priority Date/Time Associated Diagnosis Comments PROCEDURE - RESULT 06/18/2016 12 :00 AM SOLAR SALES REP documented in this encounter Results * PROCEDURE - RESULT (06/18/2016 12:00 AM SOLAR SALES REP) Narrative 06/18/2016 12:00 AM SOLAR SALES REP Ordered by an unspecified provider. Historical Provider [...] documented as of this encounter Care Teams Wellness Ambassador Relationship Specialty Start Date End Date Alonso Gutierrez MD [address] [address] PCP - General 08/18/16 Alonso Gutierrez MD [address] [address] PCP - General 07/22/11 08/17/16 documented as of this encounter
--- OUTSIDE RECORDS SUMMARY | 2025-03-29 15:23 | XMS_ITS | Encounter Summary ---
Author Organization [facility] Address [address] [place] [address] Care Team Providers Care Postal Mail Carrier Name Role Phone Alonso Gutierrez MD Primary Care [facility] Encounter Details Date Type Department Care Team (Late st Contact Info) Description 02/19/2021 Lab Requisition [facility] D[facility] Lab [address] [place] [address] Noel Muñoz MD [address] [place] [address] Social History Tobacco Use Types Packs/Day Years Used Date Smoking Tobacco: Never Smokeless Tobacco: Never Sex and Gender Information Value Date Recorded Sex Assigned at Not on file Legal Sex Male 5:13 PM IMPERSONATOR CHARACTER Gender Identity Not on file Sexual Orientation Not on file documented as of this encounter Plan of Treatment Not on file documented as of this encounter Procedures Procedure Name Priority Date/Time Associated Diagnosis Comments DERMATOPATHOLOGY Routine 02/17/2021 3:33 AM CDT documented in this encounter Results * DERMATOPATHOLOGY (02/17/2021 3:33 AM CDT) Case Report Dermatopathology Report Case: [id number] Authorizing Provider: Noel Muñoz MD Collected: 02/17/2021 03:33 AM Ordering Location: [facility] D[facility] Lab Received: 02/19/2021 07:47 AM Pathologist: [...] SCCA vs SK vs melanoma. Path # [id number]. 12:52 PM CDT DERMATOPATHOLOGY LABORATORY Gross Description Specimen A: Received is one formalin filled container labeled with the patient's name and designated left mid back. The specimen consists of a shave biopsy measuring [id number]. Jar 0. 12:52 PM CDT DERMATOPATHOLOGY LABORATORY [...] determined by the Dermatopathology Laboratory at [facility], directed by Dr. Serge Wesley. These tests need not be, and therefore are not, approved by the [place] Food and Drug Administration. The tests are used for clinical purposes. Billing Codes Specimen Charges Stain Charges 85918 1 12:52 PM CDT DERMATOPATHOLOGY LABORATORY Embedded Images 12:52 PM CDT DERMATOPATHOLOGY LABORATORY Pathology/Cytolo gy TISSUE SPECIMEN FROM SKIN / Unknown 02/17/2021 3:33 AM CDT 02/19/2021 7:47 AM CDT us Noel Muñoz MD LAB - PATHOLOGY/CYTOLOGY ORDER YUDITH Final Result DERMATOPATHOLOGY LABORATORY [facility] - Department of Dermatology [facility] Medicine [address] [place] [address], [address] [phone] documented in this encounter Visit Diagnoses Not on filedocumented in this encounter Care Teams Postal Mail Carrier Relationship Specialty Start Date End Date Alonso Gutierrez MD PCP - General 05/02/17 documented as of this encounter
--- OUTSIDE RECORDS SUMMARY | 2025-03-29 15:23 | XMS_ITS | Encounter Summary ---
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
--- OUTSIDE RECORDS SUMMARY | 2025-03-29 15:23 | XMS_ITS | Encounter Summary ---
Author Organization [facility] Facility Care Team Providers Care Bridge Welder Name Role Phone Alonso Gutierrez MD Primary Care [facility] Encounter Details Date Type Department Care Team (Latest Contact Info) Description 03/25/2017 Orders Only MMG CLINCONV ProviderSissy MD [address] [place] [address] Social History Tobacco Use Types Packs/Day Years Used Date Smoking Tobacco: Never Sex and Gender Information Value Date Recorded Sex Assigned at Not on file Legal Sex Male 2:12 AM RECEPTION MANAGER Gender Identity Male 04/17/2021 11:51 AM [...] documented as of this encounter Care Teams Bridge Welder Relationship Specialty Start Date End Date Alonso Gutierrez MD [address] [address] PCP - General 08/18/16 documented as of this encounter
--- OUTSIDE RECORDS SUMMARY | 2025-03-29 15:23 | XMS_ITS | Encounter Summary ---
Author Organization [facility] Address [address] [place] [address] Care Team Providers Care Exerciser Horse Name Role Phone Aolnso Gutierrez MD Primary Care Provider Encounter Details Date Type Department Care Team (Late st Contact Info) Description 01/31/2019 Hospital Follow-up Call [facility] [place] [address] Cee Kwan Social History Tobacco Use Types [...] Yes 01/26/2019 9:52 PM CDT Marly Moseley, INSTRUMENTATION FITTER-CAPRICE Active * Do you have difficulty dressing [...] on filedocumented in this encounter Care Teams Exerciser Horse Relationship Specialty Start Date End Date Alonso Gutierrez MD PCP - General 12/21/16 documented as of this encounter
--- OUTSIDE RECORDS SUMMARY | 2025-03-29 15:23 | XMS_ITS | Encounter Summary ---
Author Organization [facility] Address [address] [place] [address] Care Team Providers Care Redipper Name Role Phone Alonso Gutierrez MD Primary Care Provi monica Reason for Visit * Reason Onset Date Comments Urinary Symptom 03/29/2025 Encounter Details Date Type Department Care Team (Late st Contact Info) Description 03/29/2025 Nurse Triage [facility] Family Medicine [address] [place] [address] Alonso Gutierrez MD [address] [place], [place] [id number] Social History Tobacco Use Types Packs/Day Years [...] on file 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 They would like to know what [...] on filedocumented in this encounter Care Teams Redipper Relationship Specialty Start Date End Date Alonso Gutierrez MD [address] [address] PCP - General 08/18/16 documented as of this encounter
[2025-03-29 16:14] LABS: Hematocrit 41.1 % (42.0-52.0); Hemoglobin 13.3 g/dL (14.0-18.0); Immature Granulocyte Percent A 0.4 % (0-0.5); Lymphocytes Absolute Auto 0.91 K/mm3 (0.9-3.2); Mean Corpuscular HGB Conc 32.4 g/dl (32-36); Mean Corpuscular Hemoglobin 29.0 pg (26-34); Mean Corpuscular Volume 89.7 fl (80-100); Nucleated Red Blood Cells Absolute Auto 0.000 K/mm3 (0.0-0.012); Nucleated Red Blood Cells Perc 0.0 % (0.0-0.2); Platelet Count Result 247 k/mm3 (150-375); Red Blood Count 4.58 M/mm3 (4.6-6.20); White Blood Count 5.4 K/mm3 (4.5-10.0)
[2025-03-29 16:20] LABS: Add Urine Microscopic? YES; Appearance Urine Clear (Clear); Glucose Urine UA Negative (Negative); Leukocyte Esterase Ur Negative LEU/UL (Negative); Nitrate Urine Negative (Negative); Non Pathogenic Casts 0-2; Specific Grav Ur 1.021 (1.001-1.035)
[2025-03-29 16:30] LABS: Alanine Aminotransferase 21 U/L (6-50); Albumin Level 3.6 g/dL (3.5-5.1); Alkaline Phosphatase 68 U/L (38-126); Anion Gap 4 mmol/L (4-12); Aspartate Amino Transferase 31 U/L (17-59); Bilirubin,Total 0.4 mg/dL (0.2-1.3); Blood Urea Nitrogen 20 mg/dL (9-20); Calcium 8.8 mg/dL (8.4-10.2); Carbon Dioxide 28 mmol/L (22-30); Chloride 106 mmol/L (98-107); Estimated CRCL calculation 76 ml/min; Estimated Glomerular Filt Rate > 60; Glucose 93 mg/dL (65-110); Potassium 3.7 mmol/L (3.4-5.0); Sodium 138 mmol/L (137-145); Total Protein 6.3 g/dL (6.3-8.2)
[2025-03-29 18:40] VITALS: BP 134/68; PULSE 62; TEMP 36.6; O2SAT 99
== END 2025-03-29 19:04 | disposition home or self-care (01) ==
PROVIDERS: Physician Assistant; Emergency Provider Emergency Medicine
DX: R31.9 Hematuria, unspecified (principal)
CPT/HCPCS: 36415; 74176; 80053; 81001; 85025; 99284

== ENCOUNTER 2025-05-14 13:37 | Outpatient (CLI) | payer MEDICARE, BC, SELFPAY ==
--- OUTSIDE RECORDS SUMMARY | 2025-05-14 13:43 | XMS_ITS | Encounter Summary ---
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
--- OUTSIDE RECORDS SUMMARY | 2025-05-14 13:43 | XMS_ITS | Encounter Summary ---
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 Historical [...] documented as of this encounter Care Teams Permaculture Designer Relationship Specialty Start Date End Date Alonso Gutierrez MD [address] [address] PCP - General 08/18/16 Alonso Gutierrez MD [address] [address] PCP - General 07/22/11 08/17/16 documented as of this encounter
--- OUTSIDE RECORDS SUMMARY | 2025-05-14 13:43 | XMS_ITS | Encounter Summary ---
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
--- OUTSIDE RECORDS SUMMARY | 2025-05-14 13:43 | XMS_ITS | Encounter Summary ---
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
--- OUTSIDE RECORDS SUMMARY | 2025-05-14 13:43 | XMS_ITS | Clinical Summary ---
Author Organization [facility] Address [address] [place] [address] Care Team Providers Care Scallop Dredger Name Role Phone Alonso Gutierrez MD Primary Care [facility] Source Comments [facility],non-owned Affiliates and Associated Physician Practices is amultiple site organization consisting of ambulatory clinics and hospital sitesin [place], [place], [place] and [place]. This disclosure is being madepursuant to the Care Everywhere program and may not contain all information available regarding this patient. Last updated 18.[facility] Allergies No known active allergies Medications * Be aware that medications may not be up to date on this document. Alwaysverify current medications with the patient. gabapentin (NEURONTIN) 100 MG capsule Take 1,200 mg by mouth TID. 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
--- OUTSIDE RECORDS SUMMARY | 2025-05-14 13:43 | XMS_ITS | Encounter Summary ---
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 TECHNICIAN Gender Identity Male 04/17/2021 11:51 AM CDT Sexual Orientation Straight 04/17/2021 11 :51 AM CDT documented as of this encounter Functional Status documented as of this encounter Plan of Treatment Not on file documented as of this encounter Procedures Procedure Name Priority Date/Time Associated Diagnosis Comments SCAN - LABS 09/10/2016 12:00 AM DIVISION ORDER TECHNICIAN SCAN - LABS 09/09/2016 12:00 AM DIVISION ORDER TECHNICIAN documented in this encounter Results * SCAN - LABS (09/10/2016 12:00 AM DIVISION ORDER TECHNICIAN) Narrative 09/10/2016 12:00 AM DIVISION ORDER TECHNICIAN Ordered by an unspecified provider. Historical Provider Final Res ult * SCAN - LABS (09/09/2016 12:00 AM DIVISION ORDER TECHNICIAN) Narrative 09/09/2016 12:00 AM DIVISION ORDER TECHNICIAN Ordered by an unspecified provider. us [...] documented as of this encounter Care Teams Slab Depiler Operator Relationship Specialty Start Date End Date Alonso Gutierrez MD [address] [facility] [address] [place] [address] PCP - General 08/18/16 documented as of this encounter
--- OUTSIDE RECORDS SUMMARY | 2025-05-14 13:43 | XMS_ITS | Encounter Summary ---
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 Historical [...] documented as of this encounter Care Teams Air Conditioning Supervisor Relationship Specialty Start Date End Date Alonso Gutierrez MD [address] [address] PCP - General 08/18/16 Alonso Gutierrez MD [address] [address] PCP - General 07/22/11 08/17/16 documented as of this encounter
--- OUTSIDE RECORDS SUMMARY | 2025-05-14 13:43 | XMS_ITS | Encounter Summary ---
Author Organization 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
--- OUTSIDE RECORDS SUMMARY | 2025-05-14 13:43 | XMS_ITS | Encounter Summary ---
Author Organization [facility] Address [facility] [place] [address] Care Team Providers Care Garden Labourer Name Role Phone Alonso Gutierrez MD Primary Care Provider Encounter Details Date Type Department Care Team (Late st Contact Info) Description 08/02/2022 BeMe Intimates Message [facility] Patient Accounts [address] [place], [place] [phone] [facility] Provider Financial Assistance Social History Tobacco [...] Total Score: 0 05/15/20 21 8:40 AM BLUEPRINT TRACER documented as of this encounter Care Teams Garden Labourer Relationship Specialty Start Date End Date Alonso Gutierrez MD PCP - General 12/21/16 documented as of this encounter
--- OUTSIDE RECORDS SUMMARY | 2025-05-14 13:43 | XMS_ITS | Encounter Summary ---
Author Organization [facility] Address [address] [facility] [place] [address] Care Team Providers Care Hog Counter Name Role Phone Alonso Gutierrez MD Primary Care [facility] Encounter Details Date Type Department Care Team (Late st Contact Info) Description 11/06/2021 Lab Requisition [facility] DermPath Lab [address] [facility] [place] [place] [address] Noel Muñoz MD [address] [place] [address] Social History Tobacco Use Types Packs/Day Years Used Date Smoking Tobacco: Never Smokeless Tobacco: Never Sex and Gender Information Value Date Recorded Sex Assigned at Not on file 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 Gender Identity Not on file Sexual Orientation Not on file documented as of this encounter Plan of Treatment Not on file documented as of this encounter Procedures Procedure Name Priority Date/Time Associated Diagnosis Comments DERMATOPATHOLOGY Routine 11/04/2021 12:0 0 AM CDT documented in this encounter Results * DERMATOPATHOLOGY (11/04/2021 12:00 AM CDT) Case Report Dermatopathology Report Case: [id number] Authorizing Provider: Noel Muñoz MD Collected: 11/04/2021 12:00 AM Ordering Location: [facility] DermPath Lab Received: 11/06/2021 07:42 AM Pathologist: Lilian Doll MD Specimen: Skin, right upper [place] 2 1:20 PM CDT DERMATOPATHOLOGY LABORATORY Final Diagnosis Specimen A. 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 Path # [id number]. 2 1:20 PM CDT DERMATOPATHOLOGY LABORATORY Gross Description Specimen A: Received is one formalin filled container labeled with the patient's name and designated right upper [place]. The specimen consists of a shave biopsy measuring [id number], bisected. Jar 0+. 2 1:20 PM CDT [...] characteristic determined by the Dermatopathology Laboratory at [facility], directed by Dr. Serge Wesley. These tests need not be, and therefore are not, approved by the [place] Food and Drug Administration. The tests are used for clinical purposes. Billing Codes Specimen Charges Stain Charges 32511 1 2 1:20 PM CDT DERMATOPATHOLOGY LABORATORY Embedded Images 2 1:20 PM CDT DERMATOPATHOLOGY LABORATORY Pathology/Cytolog y TISSUE SPECIMEN FROM SKIN / Unknown 11/04/2021 11/06/2021 7:42 AM CDT us Noel Muñoz MD LAB - PATHOLOGY/CYTOLOGY ORDER YUDITH Final Result DERMATOPATHOLOGY LABORATORY [facility] - Department of Dermatology [address], [address] [phone] documented in this encounter Visit Diagnoses Not on filedocumented in this encounter Care Teams Hog Counter Relationship Specialty Start Date End Date Alonso Gutierrez MD PCP - General 05/02/17 documented as of this encounter
--- OUTSIDE RECORDS SUMMARY | 2025-05-14 13:43 | XMS_ITS ---
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/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 19 10/02/2021 Dislocation of hip, posterio r, right, closed ([facility]) 01/21/2019 10/02/2021 Overview (01/21/2019): Added automatically from request for surgery [id number] Arthritis of carpometacarpal (CMC) joint of right thumb 01/17/2019 10/02/2021 Aseptic loosening of prosthe tic hip, initial encounter 01/02/2019 10/02/2021 Overview (01/02/2019): Added automatically from request for surgery [id number] Recurrent dislocation, right hip 12/02/2018 11/04/2020 Overview (12/03/2018): Added automatically from request for surgery [id number] Primary osteoarthritis of fi rst carpometacarpal joint [...]
--- OUTSIDE RECORDS SUMMARY | 2025-05-14 13:43 | XMS_ITS | Clinical Summary ---
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/30/20 19 10/02/2021 Dislocation of hip, posterio r, right, closed ([facility]) 01/21/2019 10/02/2021 Overview (01/21/2019): Added automatically from request for surgery [id number] Arthritis of carpometacarpal (CMC) joint of right thumb 01/17/2019 10/02/2021 Aseptic loosening of prosthe tic hip, initial encounter 01/02/2019 10/02/2021 Overview (01/02/2019): Added automatically from request for surgery [id number] Recurrent dislocation, right hip 12/02/2018 11/04/2020 Overview (12/03/2018): Added automatically from request for surgery [id number] Primary osteoarthritis of fi rst carpometacarpal joint [...] Encounters Date Type Department Care Team Description 04/08/2025 12:57 PM CDT - 04/08/2025 11:59 PM CDT Hospital Encounter [facility] at [address] [address] Hematuria, unspecified type; Renal mass Discharge Disposition: Discharge to home or self care 04/05/2025 Telephone [facility] Medicine [address] [facility] [address] [place] [address] Alonso Gutierrez MD Medical Question/Miscellane ous 04/04/2025 Nurse Triage [facility] Family Medicine [address] [facility] [address] [place] [address] Alonso Gutierrez MD Hematuria, unspecified type (Primary Dx) 03/29/2025 Nurse Triage [facility] Medicine [address] [facility] [address] [place] [phone] Alonso Gutierrez MD 03/29/2025 Telephone [facility] [address] [facility] [address] [place] [phone] Alonso Gutierrez MD 03/25/2025 8:45 AM CDT Office Visit [facility] Cardiology [address] [place] [address] Abhishek Newman MD Paroxysmal atrial fibrillation (HCC) (Primary Dx); Essential hypertension from Last 3 Months Immunizations Immunization Administration [...] 08/06/2002 Surgical History Surgery Date Site/Laterality Comments CT ARTHRD ANT INTERBODY MIN DSC LUMBAR Lumbar Vertebral Fusion - (Added by TW Conv) CT DSTRJ NEUROLYTIC AGENT OT HER PERIPHERAL NERVE [...] on file 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 Gender Identity Male 04/17/2021 11:51 AM CDT Sexual Orientation Straight 04/17/2021 11 :51 AM CDT Last Filed Vital Signs Vital Sign Reading Time Taken Comments Blood Pressure 120/70 03/25/2025 8:40 AM CDT Pulse 72 03/25/2025 8:40 AM CDT Temperature 36.7 C (98 F) 10/07/2021 9:27 AM CDT Respiratory Rate 16 03/25/2025 8:40 AM CDT Oxygen Saturation 97% 03/25/2025 8:40 AM CDT Inhaled Oxygen Concentration - - Weight 78.9 kg (173 lb 15.1 oz) 04/08/2025 1:17 PM CDT Height 182.9 cm (6') 04/08/2025 1:17 PM CDT Body Mass Index 23.59 04/08/2025 1:17 PM CDT Plan of Treatment Health Maintenance Due [...] 05/11/2019, 10/08/2014 Medical Devices Implanted Type Area Veneer Marker Device Identifier Shelf Expiration Date Model / Serial / Lot Other - See Comments-01/06/20 17 Implanted:01/05 (Quantity not on file) Other - see comments Right: Hip [employer] 3122-040 Smartset Medium Viscosity Cement 40gm Bone Sterile - [id number] Implanted:Qty: 1 on 01/22/2019 by Fredis Gregory MD at [facility] Right: Hip [employer] [id number] / / [id number] Dep[employer]ics NanoPack [id number] Articul/Cong 28mm Sleeve Total Stabilize Hip +8.5mm 12/14 Taper Latex Free - [id number] Implanted:Qty: 1 on 01/22/2019 by Fredis Gregory MD at [facility] Right: Hip [employer] [id number] / / [id number] Bi-Mentum Pe Liner 28/47 Implanted:Qty: 1 on 01/22/2019 by Fredis Gregory MD at [facility] Right: Hip DEPUY Vendavo [id number] / / [employer] NanoPack [id number] Endurance Smartset Cement 20gm Bone - [id number] Implanted:Qty: 1 on 01/22/2019 by Fredis Gregory MD at [facility] Right: Hip [employer] Orthopa[employer] NanoPack [id number] / / [id number] Bi-Mentum Pressfit Cup 47 Implanted:Qty: 1 on 01/23/2019 by Fredis Gregory MD at [facility] Right: Hip DEPUY Vendavo [id number] / / [id number] Procedures Procedure Name Priority Date/Time Associated Diagnosis Comments MRI ABDOMEN KIDNEY W WO CONTRAST Schedule Routine, Read Routine (OP Routine) 04/08/2025 1:59 PM CDT Hematuria, unspecified type Renal mass COLONOSCOPY Routine 01/23/2019 from Last 3 Months or Most Recently Relevant to Health Maintenance Results * MRI Abdomen Kidney W WO Contrast (04/08/2025 1:59 PM CDT) Anatomical Region Laterality Modality Body N/A Magnetic Resonan ce 04/08/2025 2:51 PM CDT Impressions 04/08/2025 3:46 PM CDT Bilateral renal cysts, some of which contain hemorrhagic or proteinaceous components. No suspicious renal lesion. Dictated by: Leo Reynolds MD PHD The radiology attending physician has personally reviewed this study, and had reviewed and/or edited this written report and agrees with it. Electronically signed by: Giselle Pete M.D. Narrative 04/08/2025 3:46 PM CDT EXAMINATION: MAGNETIC RESONANCE IMAGING OF THE ABDOMEN WITH AND WITHOUT CONTRAST HISTORY: Hematuria. TECHNIQUE: Magnetic resonance imaging of the abdomen was performed prior to and following the administration of intravenous contrast. Protocol: Kidney Contrast: Dotarem (gadoterate) 15 mL COMPARISON: CT 10/31/2020 FINDINGS: Liver and Bile Ducts: No surface nodularity. No fat or iron deposition. No bile duct dilation. Scattered small hepatic cysts. No suspicious focal lesion. Gallbladder: Normal Pancreas: Normal Spleen: Normal size with a subcentimeter T2 hyperintense lesion likely benign. Adrenals: Normal Kidneys: Bilateral renal cysts, some of which contain hemorrhagic or proteinaceous components. No suspicious renal lesion. Other Findings: Imaged lung bases are clear. Imaged bowel is normal in caliber. No abdominal lymphadenopathy. No suspicious osseous lesion. Procedure Note Giselle Pete MD - 04/08/2025 EXAMINATION: MAGNETIC RESONANCE IMAGING OF THE ABDOMEN WITH AND WITHOUT CONTRAST HISTORY: Hematuria. TECHNIQUE: Magnetic resonance imaging of the abdomen was performed prior to and following the administration of intravenous contrast. Protocol: Kidney Contrast: Dotarem (gadoterate) 15 mL COMPARISON: CT 10/31/2020 FINDINGS: Liver and Bile Ducts: No surface nodularity. No fat or iron deposition. No bile duct dilation. Scattered small hepatic cysts. No suspicious focal lesion. Gallbladder: Normal Pancreas: Normal Spleen: Normal size with a subcentimeter T2 hyperintense lesion likely benign. Adrenals: Normal Kidneys: Bilateral renal cysts, some of which contain hemorrhagic or proteinaceous components. No suspicious renal lesion. Other Findings: Imaged lung bases are clear. Imaged bowel is normal in caliber. No abdominal lymphadenopathy. No suspicious osseous lesion. IMPRESSION: Bilateral renal cysts, some of which contain hemorrhagic or proteinaceous components. No suspicious renal lesion. Dictated by: Leo Reynolds MD PHD The radiology attending physician has personally reviewed this study, and had reviewed and/or edited this written report and agrees with it. Electronically signed by: Giselle Pete M.D. us Alonso Gutierrez MD IMG MRI PROCEDURES Final Result * Colonoscopy (01/23/2019) Anatomical Region Laterality Modality Other us Historical Provider ENDOSCOPY PROCEDURES Kaitlin l Result from Last 3 Months or Most Recently Relevant to Health Maintenance Insurance MEDICARE MEDICARE [facility] MEDICARE [facility] MEDICARE MEDICARE Advance Directives For more information, please contact: [phone] * Full Code (Latest Code Status on File) Date Activated Date Inactivated Comments 01/22/2019 4:20 AM 01/26/2019 9:25 PM Care Teams Supervisor Pullet Farm Relationship Specialty Start Date End Date Alonso Gutierrez MD [address] [facility] [address] [place] [address] PCP - General 08/18/16
--- OUTSIDE RECORDS SUMMARY | 2025-05-14 13:43 | XMS_ITS | Encounter Summary ---
Author Organization [facility] Address [address] [facility] [place] [address] Care Team Providers Care Licensed Embalmer Name Role Phone Alonso Gutierrez MD Primary Care [facility] Encounter Details Date Type Department Care Team (Late st Contact Info) Description 02/19/2021 Lab Requisition [facility] DermPath Lab [address] [facility] [place] [address] Noel Muñoz MD [address] [place] [address] Social History Tobacco Use Types Packs/Day Years Used Date Smoking Tobacco: Never Smokeless Tobacco: Never Sex and Gender Information Value Date Recorded Sex Assigned at Not on file 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 Gender Identity Not on file Sexual Orientation Not on file documented as of this encounter Plan of Treatment Not on file documented as of this encounter Procedures Procedure Name Priority Date/Time Associated Diagnosis Comments DERMATOPATHOLOGY Routine 02/17/2021 3:33 AM CDT documented in this encounter Results * DERMATOPATHOLOGY (02/17/2021 3:33 AM CDT) Case Report Dermatopathology Report Case: [id number] Authorizing Provider: Noel Muñoz MD Collected: 02/17/2021 03:33 AM Ordering Location: [facility] DermPath Lab Received: 02/19/2021 07:47 AM Pathologist: [...] SCCA vs SK vs melanoma. Path # [id number]. 12:52 PM CDT DERMATOPATHOLOGY LABORATORY Gross Description Specimen A: Received is one formalin filled container labeled with the patient's name and designated left mid back. The specimen consists of a shave biopsy measuring [id number]. Jar 0. 12:52 PM CDT DERMATOPATHOLOGY LABORATORY [...] characteristic determined by the Dermatopathology Laboratory at [facility], directed by Dr. Serge Wesley. These tests need not be, and therefore are not, approved by the [place] Food and Drug Administration. The tests are used for clinical purposes. Billing Codes Specimen Charges Stain Charges 51386 1 12:52 PM CDT DERMATOPATHOLOGY LABORATORY Embedded Images 12:52 PM CDT DERMATOPATHOLOGY LABORATORY Pathology/Cytolo gy TISSUE SPECIMEN FROM SKIN / Unknown 02/17/2021 3:33 AM CDT 02/19/2021 7:47 AM CDT us Noel Muñoz MD LAB - PATHOLOGY/CYTOLOGY ORDER YUDITH Final Result DERMATOPATHOLOGY LABORATORY [facility] - Department of Dermatology [facility] Medicine [address] [place] [address], [address] [phone] documented in this encounter Visit Diagnoses Not on filedocumented in this encounter Care Teams Licensed Embalmer Relationship Specialty Start Date End Date Alonso Gutierrez MD PCP - General 05/02/17 documented as of this encounter
--- OUTSIDE RECORDS SUMMARY | 2025-05-14 13:43 | XMS_ITS | Encounter Summary ---
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
--- OUTSIDE RECORDS SUMMARY | 2025-05-14 13:44 | XMS_ITS | Encounter Summary ---
Author Organization [facility] Address [address] [place] [address] Care Team Providers Care Fleet Driver Name Role Phone Alonso Gutierrez MD Primary Care Provider Encounter Details Date Type Department Care Team (Late st Contact Info) Description 01/31/2019 Hospital Follow-up Call [facility] [place] [address] Cee Kwan Social History Tobacco Use Types [...] Yes 01/26/2019 9:52 PM CDT Marly Moseley, DRYWALL SANDER-CAPRICE Active * Do you have difficulty dressing [...] on filedocumented in this encounter Care Teams Fleet Driver Relationship Specialty Start Date End Date Alonso Gutierrez MD PCP - General 12/21/16 documented as of this encounter
--- OUTSIDE RECORDS SUMMARY | 2025-05-14 13:44 | XMS_ITS | Clinical Summary ---
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 Poliomyelitis 01/29/2019 Irregular heart beat 01/29/2019 History of [...] Blood Pressure 151/80 05/28/2022 8:26 AM DIRECTOR PLANS Pulse 87 05/28/2022 8:26 AM DIRECTOR PLANS Temperature 37 C (98.6 F) 05/28/2022 8:26 AM DIRECTOR PLANS Respiratory Rate 18 05/28/2022 8:26 AM DIRECTOR PLANS Oxygen Saturation 97% 05/28/2022 8:26 AM DIRECTOR PLANS Inhaled Oxygen Concentration - - Weight 77.6 kg (171 lb) 05/28/2022 8:26 AM DIRECTOR PLANS Height 182.9 cm (6') 05/28/2022 8:26 AM DIRECTOR PLANS Body Mass Index 23.19 05/28/2022 8:26 AM DIRECTOR PLANS Plan of Treatment Health Maintenance Due Date Last Done Comments Hepatitis C 09/25/1963 Zoster Vaccines (1 of 2) 09/25/1995 DTaP, Tdap and Td Vaccines (1 - Tdap) 08/07/2002 08/06/2002 RSV Immunization or 60+ Years (1 - 1-dose 75+ series) 2020 COVID-19 Vaccine (3 - season) 2025 09/12/2020, 08/15/2020 Influenza Adult (#1) 2025 04/14/2020, 04/01/2019, 03/06/2018, Additional history exists Pneumococcal Vaccine: 50+ Years Completed 04/14/2020, 05/11/2019, 10/08/2014 Hepatitis A Vaccines Aged Out No long er eligible based on patient's age to complete this topic Meningococcal B Vaccine Aged Out No l onger eligible based on patient's age to complete this topic Meningococcal Vaccine Aged Out No yesenia keiry eligible based on patient's age to complete this topic RSV Immunizations Under 20 Months Aged Out No longer eligible based on patient's age to complete this topic Insurance MEDICARE PART A Advance Directives Documents on File Type Date Recorded 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
[2025-05-14 18:59] LABS: Add Urine Microscopic? YES; Appearance Urine Cloudy (Clear); Glucose Urine UA Negative (Negative); Leukocyte Esterase Ur 3+ LEU/UL (Negative); Need Manual Microscopic Reviewed; Nitrate Urine Negative (Negative); Specific Grav Ur 1.018 (1.001-1.035)
== END 2025-05-14 13:38 | disposition home or self-care (01) ==
PROVIDERS: Visit Provider Urology
DX: R30.0 Dysuria (principal)
CPT/HCPCS: 81001; 87086